=== PATIENT | female | born 1985 | race Caucasian/White ===

== ENCOUNTER 2016-12-24 18:34 | Emergency (ER) | payer OTHER ==
[2016-12-24 19:03] VITALS: RESP 18
[2016-12-24] MEDS ORDERED: methylPREDNISolone SOD SUCCI 125 MG/2 ML VIAL IM ONE (19:52)
[2016-12-24] MEDS ORDERED: IPRATROPIUM-ALBUTEROL 3 ML NEB INHALATION STA (19:52)
--- NOTE | 2016-12-24 19:58 | ED ---
General Adult HPI - General Chief complaint: Upper Respiratory Infection Stated complaint: Diff Breathing, cough Time Seen by Provider: 12/24/16 19:47 Source: patient Mode of arrival: ambulatory Limitations: no limitations - History of Present Illness Initial comments: 31-year-old female patient presented to emergency department today for complaints of cough and chest congestion. Patient states that for the last 5-6 days she has had a harsh cough, with frequent spasmodic coughing episodes. She states that symptoms started with sore throat and headache 6 days ago. She denies any history of nasal congestion or drainage with this. She states that occasionally she does cough up green sputum however it is mostly a dry cough. States she has had some wheezing, burning in her chest with the cough, and feels short of breath. She does have a past medical history significant for asthma. States she has been doing albuterol nebulizer updraft treatments every 4 hours without relief of symptoms. She denies use of [id number] cough or cold medications. She denies any known fever. Patient denies any chills, chest pain, abdominal pain, nausea, vomiting, diarrhea, constipation, back pain , numbness, tingling, dizziness, weakness, hematuria, dysuria, urinary urgency, urinary frequency, headache, visual changes, or any other complaints. She admits to smoking cigarettes. She states she has a paraguard IUD and takes control pills. She denies any chance of . - Related Data Home Medications Medication Instructions Recorded Confirmed ALPRAZolam [Xanax] 1 mg PO TID 03/17/15 12/24/16 lamoTRIgine [LaMICtal Xr] 200 mg PO DAILY 10/24/16 12/24/16 Gabapentin [Neurontin] 300 mg PO TID 12/24/16 12/24/16 Lo Loestrin 1 tab PO DAILY 12/24/16 12/24/16 Multivitamins, Thera [Multivitamin 1 tab PO DAILY 12/24/16 12/24/16 (formulary)] [place]-3 Fatty Acids/Fish Oil [Fish 1 cap PO DAILY 12/24/16 12/24/16 Oil 1,000 mg Softgel] Sertraline [Zoloft] 75 mg PO DAILY 12/24/16 12/24/16 Venlafaxine HCl [Effexor] 50 mg PO DAILY 12/24/16 12/24/16 Previous Rx's Medication Instructions Recorded Ipratropium-Albuterol Nebulize 3 ml INHALATION Q4H PRN #30 neb 12/24/16 [Duoneb 0.5 mg-3 mg/3 ml Soln] guaiFENesin [Mucinex] 600 mg PO BID PRN #10 tab.er.12h 12/24/16 predniSONE 50 mg PO DAILY #7 tab 12/24/16 Allergies Allergy/AdvReac Type Severity Reaction Status Date / Time No Known Allergies Allergy Verified 12/24/16 19:35 Review of Systems ROS Statement: Those systems with pertinent positive or pertinent negative responses have been documented in the HPI. ROS Other: All systems not noted in ROS Statement are negative. Past Medical History Additional Past Medical History / Comment(s): OCD, MDD, borderline personality disorder History of Any Multi-Drug Resistant Organisms: None Reported Past Surgical History: Ear Surgery Additional Past Surgical History / Comment(s): CLEFT PALETE REPAIR Past Psychological History: Anxiety, Bipolar Smoking Status: Current every day smoker Past Alcohol Use History: None Reported, Occasional Past Drug Use History: None Reported General Exam Limitations: no limitations General appearance: alert, in no apparent distress Eye exam: Present: normal appearance, PERRL, EOMI. Absent: scleral icterus, conjunctival injection, periorbital swelling ENT exam: Present: normal exam, normal oropharynx, mucous membranes moist, TM's normal bilaterally Neck exam: Present: normal inspection. Absent: tenderness, meningismus, lymphadenopathy Respiratory exam: Present: normal lung sounds bilaterally, wheezes (Left upper lobe posteriorly.). Absent: respiratory distress, rales, rhonchi, stridor Cardiovascular Exam: Present: regular rate, normal rhythm, normal heart sounds. Absent: systolic murmur, diastolic murmur, rubs, gallop, clicks GI/Abdominal exam: Present: soft, normal bowel sounds. Absent: distended, tenderness, guarding, rebound, rigid Neurological exam: Present: alert, oriented X3, CN II-XII intact Psychiatric exam: Present: normal affect, normal mood Skin exam: Present: warm, dry, intact, normal color. Absent: rash Course Vital Signs 12/24/16 12/24/16 12/24/16 19:00 20:11 20:19 Temperature 98.3 F Pulse Rate 99 104 H 106 H Respiratory 18 Rate Blood Pressure 129/74 O2 Sat by Pulse 93 L Oximetry 12/24/16 20:39 Temperature Pulse Rate 105 H Respiratory 18 Rate Blood Pressure 117/64 O2 Sat by Pulse 94 L Oximetry Medical Decision Making - Medical Decision Making 31-year-old female presented for evaluation of shortness of breath and cough 5- 6 days. Chest x-ray was performed and showed no acute cardiopulmonary process. Patient was given a DuoNeb treatment here in the department as well as a intramuscular injection of 125 mg IM Medrol. Patient states that she is feeling a little better. Did discuss with patient the importance of smoking cessation especially in regards to respiratory issues. Patient does have a history of asthma. She will be discharged home with a 7 day course of prednisone. She will be given prescription for DuoNeb treatments as she does have a nebulizer at home. She is instructed to do these treatments every 4-6 hours as needed. She is instructed to complete the entire prednisone prescription and full. She is instructed to follow-up with her primary care provider in one to 2 days for recheck. She is instructed to return here immediately for any new, worsening, or concerning symptoms. Patient verbalizes understanding and agrees with this plan. Disposition Clinical Impression: Acute bronchitis, Asthma exacerbation Disposition: HOME SELF-CARE Condition: Good Instructions: Asthma (ED), How to Stop Smoking (ED), Acute Bronchitis (ED) Additional Instructions: Two breathing treatments every 4-6 hours as needed. Complete steroid prescription and full. Increase fluids. Follow-up with her primary care physician for recheck in 1-2 days. Return here immediately for any new, worsening, or concerning symptoms. Prescriptions: guaiFENesin [Mucinex] 600 mg PO BID PRN #10 tab.er.12h PRN Reason: Cough/Congestion Ipratropium-Albuterol Nebulize [Duoneb 0.5 mg-3 mg/3 ml Soln] 3 ml INHALATION Q4H PRN #30 neb PRN Reason: Wheezing/Shortness of Breath predniSONE 50 mg PO DAILY #7 tab Referrals: Sina Russo MD [Primary Care Provider] - 1-2 days Time of Disposition: 21:33
--- NOTE | 2016-12-24 20:36 | XR ---
EXAMINATION TYPE: XR chest 2V DATE OF EXAM: 12/24/2016 COMPARISON: NONE HISTORY: Cough and short of breath TECHNIQUE: Frontal and lateral views of the chest are obtained. FINDINGS: Heart and mediastinum are normal. Lungs are clear. Diaphragm is normal. Bony thorax is int act. IMPRESSION: Normal chest.
[2016-12-24 21:45] VITALS: BP 111/74; PULSE 94; TEMP 99
== END 2016-12-24 21:45 | disposition home or self-care (01) ==
LOC: EC 18:34
DX: J20.9 Acute bronchitis, unspecified (principal); J45.901 Unspecified asthma with (acute) exacerbation; F41.9 Anxiety disorder, unspecified; F31.9 Bipolar disorder, unspecified; F17.200 Nicotine dependence, unspecified, uncomplicated; Z79.899 Other long term (current) drug therapy
CPT/HCPCS: 94640; 71020; 99283; 96372; J2930

== ENCOUNTER 2017-06-03 12:55 | Emergency (ER) | payer OTHER ==
[2017-06-03] MEDS ORDERED: diphenhydrAMINE 50 MG/ML 1 ML VIAL IVP STA (13:18)
[2017-06-03] MEDS ORDERED: METOCLOPRAMIDE 5 MG/ML 2 ML VIAL IVP STA (13:18)
[2017-06-03] MEDS ORDERED: SODIUM CHLORIDE 0.9% 1,000 ML IV STA (13:18)
--- NOTE | 2017-06-03 13:35 | ED ---
General Adult HPI - General Chief complaint: Headache Stated complaint: Migraine x's 3 days Time Seen by Provider: 06/03/17 13:12 Source: patient, RN notes reviewed Mode of arrival: ambulatory Limitations: no limitations - History of Present Illness Initial comments: 31-year-old female presents to the emergency department with a chief complaint of headache. Patient has a history of migraines. She states that she developed this migraine of the last 3 days. She is tried at home treatments with no improvement. She admits to sensitivity to light. Patient states her whole head is throbbing. She's not had a migraine many years. She states there is no falls traumas or injuries. Patient was concerned due to the continued headache so she thought that she should be seen.Patient denies any recent fever, chills, shortness of breath, chest pain, back pain, abdominal pain , nausea vomiting, numbness or tingling, dysuria or hematuria, constipation or diarrhea, visual changes, or any other current symptoms. - Related Data Home Medications Medication Instructions Recorded Confirmed ALPRAZolam [Xanax] 1 mg PO TID 03/17/15 06/03/17 Multivitamins, Thera [Multivitamin 1 tab PO DAILY 12/24/16 06/03/17 (formulary)] [place]-3 Fatty Acids/Fish Oil [Fish 1 cap PO DAILY 12/24/16 06/03/17 Oil 1,000 mg Softgel] Beclomethasone Dipropionate [Qvar 2 puff INHALATION RT-BID 06/03/17 06/03/17 80 mcg] Cholecalciferol [Vitamin D3] 1,000 unit PO DAILY 06/03/17 06/03/17 Montelukast [Singulair] 10 mg PO DAILY 06/03/17 06/03/17 Norethindrone-E.estradiol-Iron 1 tab PO DAILY 06/03/17 06/03/17 [Loestrin Fe 1-20 Tablet] Venlafaxine HCl [Effexor XR] 225 mg PO DAILY 06/03/17 06/03/17 lamoTRIgine [LaMICtal] 200 mg PO DAILY 06/03/17 06/03/17 Allergies Allergy/AdvReac Type Severity Reaction Status Date / Time No Known Allergies Allergy Verified 06/03/17 13:23 Review of Systems ROS Statement: Those systems with pertinent positive or pertinent negative responses have been documented in the HPI. ROS Other: All systems not noted in ROS Statement are negative. Past Medical History Additional Past Medical History / Comment(s): OCD, MDD, borderline personality disorder, migraines History of Any Multi-Drug Resistant Organisms: None Reported Past Surgical History: Ear Surgery Additional Past Surgical History / Comment(s): CLEFT PALETE REPAIR Past Psychological History: Anxiety, Bipolar Smoking Status: Current every day smoker Past Alcohol Use History: None Reported, Occasional Past Drug Use History: None Reported General Exam - General Exam Comments Initial Comments: General: The patient is awake and alert, in no distress, and does not appear acutely ill. Eye: Pupils are equal, round and reactive to light, extra-ocular movements are intact; there is normal conjunctiva bilaterally. No signs of icterus. Ears, nose, mouth and throat: There are moist mucous membranes. Neck: The neck is supple, there is no tenderness. Cardiovascular: There is a regular rate and rhythm. No murmur, rub or gallop is appreciated. Respiratory: Lungs are clear to auscultation, respirations are non-labored, breath sounds are equal. No wheezes, stridor, rales, or rhonchi. Gastrointestinal: Soft, non-distended, non-tender abdomen without masses or organomegaly noted. There is no rebound or guarding present. No CVA tenderness. Bowel sounds are unremarkable. Back: There is no tenderness to palpation in the midline. There is no obvious deformity. No rashes noted. Musculoskeletal: Normal ROM, no tenderness, There is no pedal edema. There is no calf tenderness or swelling. Sensation intact. Pulses equal bilaterally 2+. Neurological: CN II-XII intact, There are no obvious motor or sensory deficits. Coordination appears grossly intact. Speech is normal. Skin: Skin is warm and dry and no rashes or lesions are noted. Psychiatric: Cooperative, appropriate mood & affect, normal judgment. Limitations: no limitations Course Vital Signs 06/03/17 13:02 Temperature 98 F Pulse Rate 105 H Respiratory 22 Rate Blood Pressure 122/75 O2 Sat by Pulse 99 Oximetry Medical Decision Making - Medical Decision Making 31-year-old female presents emergency Department chief complaint of headache. At this time patient's headache has improved. At this time the CAT scan results were discussed patient. This time patient will be discharged home. We discussed follow-up return parameters all questions. Patient stated that she understood and she is here this plan. All questions have been answered. She will be discharged. Disposition Clinical Impression: Headache Disposition: HOME SELF-CARE Condition: Stable Instructions: Acute Headache (ED) Additional Instructions: Please use medication as discussed. Please follow up with family doctor if symptoms have not improved over the next two days. Please return to the emergency room if your symptoms increase or worsen or for any other concerns. Referrals: Sina Russo MD [Primary Care Provider] - 1-2 days Time of Disposition: 14:26
--- NOTE | 2017-06-03 13:54 | CT ---
EXAMINATION TYPE: CT brain wo con DATE OF EXAM: 06/03/2017 COMPARISON: NONE HISTORY: Patient complains of migraine headache and light sensitivity x3 days. CT DLP: [address] of the brain was performed. The ventricles, basal cisterns and sulci overlying the cerebral convexities demonstrate a normal appe arance. Incidental septum cavum pellucidum and vergae. There is no evidence for intracranial hemorrhage or sulcal effacement. No mass effects are seen. Osseous calvarium is intact. If symptoms persist consider MRI as clinically warranted. IMPRESSION: 1. No acute intracranial process is seen at this time.
[2017-06-03] MEDS ORDERED: KETOROLAC 30 MG/ML 1 ML VIAL IVP STA (13:59)
[2017-06-03 14:48] VITALS: BP 111/59; PULSE 80; RESP 18; TEMP 98.6
== END 2017-06-03 14:45 | disposition home or self-care (01) ==
LOC: EC 12:55
DX: R51 Headache (principal); H53.149 Visual discomfort, unspecified; F31.9 Bipolar disorder, unspecified; F41.9 Anxiety disorder, unspecified; F17.200 Nicotine dependence, unspecified, uncomplicated; Z79.3 Long term (current) use of hormonal contraceptives; Z79.51 Long term (current) use of inhaled steroids; Z79.899 Other long term (current) drug therapy
CPT/HCPCS: 70450; 99283; 96374; 96375 ×2; 96361; J1200; J2765; J1885

== ENCOUNTER 2018-04-07 06:55 | Day surgery (SDC) | payer OTHER ==
[2018-03-31 12:00] VITALS: BMI 26.9
[~2018-04-07 06:55] MED LIST: LACTATED RINGERS 1,000 ML IV SCH; LIDOCAINE 1% 20 ML VIAL (10MG/ML) FOR IV START INTRADERMA PRN; MIDAZOLAM (PF) 2 MG/2 ML VIAL IV PRN
[2018-04-07 07:23] VITALS: TEMP 97.3
[2018-04-07] MEDS ORDERED: PROPOFOL 10 MG/ML 20 ML VIAL IV ONE (07:55)
[2018-04-07 08:40] VITALS: RESP 18
--- NOTE | 2018-04-07 08:45 | P.PCN ---
Date of Procedure: 04/07/18 Procedure(s) Performed: Procedures: 1. Esophagogastroduodenoscopy and biopsy. 2. Colonoscopy and biopsy. Preoperative diagnosis: Chest pain, diarrhea and rectal bleeding. Postoperative diagnosis: 1. Small sliding hiatal hernia with no obvious esophagitis or complicated reflux disease. 2. Mild antral gastritis. 3. Internal hemorrhoids without bleeding at the time of this exam, otherwise, exam of the colon within normal limits. 4. Biopsies obtained from the duodenum, antrum, esophagus, right colon and a blind biopsy was obtained from the terminal ileum. Preparation: HalfLytely prep. Sedation: Was provided by anesthesia. Brief clinical history: The patient is a 32-year-old female who has been having diarrhea for the last year. Her diarrhea is daily with no dietary triggers or precipitating factors. Has intermittent rectal bleeding as well. She has been also having chest pains starting this summer and is on treatment for costochondritis. This evaluation is to assess for complicated reflux disease, inflammatory bowel disease or other pathology. Procedure: With the patient on her left lateral decubitus position and after informed consent and adequate sedation, I passed the Olympus-GIF 160 video upper endoscope through the cricopharyngeus down the esophagus. GE junction was around 35-36 cm from the incisors and there was a small sliding hiatal hernia but no obvious esophagitis or complicated reflux disease. The endoscope was then passed into the stomach which was insufflated with air and inspected in detail including the retroflex view in the cardia. There was some mottling and erythema in the antrum but no ulcers or erosions. Pyloric channel, duodenal bulb, post bulbar area and descending duodenum appeared within normal limits. Because of her symptoms, I obtained biopsies from the duodenum, antrum and esophagus then the endoscope was withdrawn and I proceeded with the colonoscopy. Perianal area did not show any fissures or fistulas. There were no masses felt on digital rectal examination. The Olympus CFH 190L video colonoscope was then inserted in the rectum in the usual fashion and advanced to the cecum. I was not able to intubate the ileocecal valve, however, I was able to obtain a blind biopsies from the terminal ileum. The colon appeared normal with no edema, erythema, friability, ulceration, exudation or spontaneous bleeding. I obtained biopsies from the right colon as well. I then retroflexed the endoscope in the rectum before the endoscope was withdrawn. Low-grade internal hemorrhoids were noted with no evidence of bleeding. The patient tolerated the procedure well. Plan: The patient was reassured. Will await biopsy results and make further plans based on her course and biopsy results. She will follow-up with you as planned and I will keep you updated on her progress.
[2018-04-07 08:52] VITALS: BP 102/71; PULSE 87
== END 2018-04-07 09:32 | disposition home or self-care (01) ==
LOC: ORWHC2ENDO 06:55
DX: K29.50 Unspecified chronic gastritis without bleeding (principal); K52.9 Noninfective gastroenteritis and colitis, unspecified; K62.89 Other specified diseases of anus and rectum; K44.9 Diaphragmatic hernia without obstruction or gangrene; K64.8 Other hemorrhoids; M94.0 Chondrocostal junction syndrome [Tietze]; J45.909 Unspecified asthma, uncomplicated; F17.210 Nicotine dependence, cigarettes, uncomplicated; K21.9 Gastro-esophageal reflux disease without esophagitis; Z79.899 Other long term (current) drug therapy
CPT/HCPCS: 81025; 88305; 45380; 43239; J2704

== ENCOUNTER → 2018-09-22 | Outpatient (CLI) | payer OTHER ==
--- NOTE | 2018-09-23 07:45 | US ---
EXAMINATION TYPE: US transvaginal DATE OF EXAM: 09/22/2018 COMPARISON: US CLINICAL HISTORY: Z30.431 encounter for routine checking of intrauterine. Pt states pelvic pain, more on right side TECHNIQUE: Transvaginal (TV). Transvaginal sonographic images of the pelvis were acquired. Date of LMP: 09/20/2018 EXAM MEASUREMENTS: Uterus: 8.5 x 4.4 x 5.6 cm Endometrial Stripe: 0.5 cm Right Ovary: 3.1 x 2.6 x 1.5 cm Left Ovary: 3.0 x 3.1 x 1.5 cm 1. Uterus: Anteverted Nabothian cysts in cervix, IUD in correct position 2. Endometrium: wnl 3. Right Ovary: wnl 4. Left Ovary: wnl 5. Bilateral Adnexa: Slightly prominent vasculature visualized bilateral adnexa 6. Posterior cul-de-sac: wnl IMPRESSION: 1. Intrauterine device appears appropriately placed within the central endometrium bridging the lower and upper uterine segments. 2. Slightly prominent vasculature is seen in the adnexa bilaterally that can be seen in pelvic conges tion syndrome.
== END | disposition home or self-care (01) ==
LOC: RADUSWWP 16:32
PROVIDERS: ATTEND Obstetrics & Gynecology
DX: Z30.431 Encounter for routine checking of intrauterine contraceptive device (principal)
CPT/HCPCS: 76830

== ENCOUNTER 2018-09-25 23:29 | Emergency (ER) | payer OTHER ==
[2018-09-26 00:11] VITALS: RESP 18
--- NOTE | 2018-09-26 00:45 | CT ---
EXAM: CT Angiography Neck With Intravenous Contrast CLINICAL HISTORY: ITS.REASON CT Reason: Neck injury TECHNIQUE: Axial computed tomographic angiography images of the neck with intravenous contrast using CT angiography protocol. CTDI is 9 mGy and DLP is 335 mGy-cm. This CT exam was performed using one or more of the following dose reduction techniques: automated exposure control, adjustment of the mA and/or kV according to patient size, and/or use of iterative reconstruction technique. MIP reconstructed images were created and reviewed. COMPARISON: No relevant prior studies available. FINDINGS: VASCULATURE: Right common carotid artery: Unremarkable. No significant stenosis. No dissection or occlusion. Right internal carotid artery: Unremarkable. Extracranial segment is patent with no significant stenosis. No dissection or occlusion. Right external carotid artery: Unremarkable. No occlusion. Right vertebral artery: Unremarkable. No significant stenosis. No dissection or occlusion. Left common carotid artery: Unremarkable. No significant stenosis. No dissection or occlusion. Left internal carotid artery: Unremarkable. Extracranial segment is patent with no significant stenosis. No dissection or occlusion. Left external carotid artery: Unremarkable. No occlusion. Left vertebral artery: Unremarkable. No significant stenosis. No dissection or occlusion. NECK: Bones/joints: No acute fracture. No dislocation. Soft tissues: Unremarkable. No mass. CAROTID STENOSIS REFERENCE USING NASCET CRITERIA: % ICA stenosis = (1 - narrowest ICA diameter/diameter of distal cervical ICA) x 100. Mild - <50% stenosis. Moderate - 50-69% stenosis. Severe - 70-94% stenosis. Near occlusion - 95-99% stenosis. Occluded - 100% stenosis. IMPRESSION: No significant stenosis.
[2018-09-26] MEDS ORDERED: ACET/COD 300 MG/30 MG STARTER PACK 6 TAB BTL PO STA (00:53)
--- NOTE | 2018-09-26 00:55 | ED ---
Neck Injury/Pain HPI - General Mode of arrival: ambulatory Limitations: no limitations <Noemi Munoz - Last Filed: 09/26/18 03:49> <Dalia Chauhan - Last Filed: 09/26/18 03:59> - General Chief Complaint: Neck Pain/Injury Stated Complaint: Neck pain Time Seen by Provider: 09/25/18 23:53 - History of Present Illness Initial Comments: 33-year-old female patient presents to the emergency department today for evaluation of anterior neck pain, sore throat, difficulty swallowing after an injury sustained on Wednesday. She states she was running through her friend's yard, not paying attention when she struck her neck on a metal line hanging up in the yard. States that she fell backwards and struck her head on the ground. Patient states she developed bruising over the anterior neck and has had sore throat since the injury. States that she initially had headache, but this did improve. She denies loss of consciousness with the injury. She denies any shortness of breath. Patient denies any headache, back pain, chest pain, shortness of breath, dizziness, weakness, abdominal pain, nausea, vomiting, or difficulties with bowel movements or urination. (Noemi Munoz) - Related Data Home Medications Medication Instructions Recorded Confirmed Multivitamins, Thera [Multivitamin 1 tab PO DAILY 12/24/16 04/07/18 (formulary)] [place]-3 Fatty Acids/Fish Oil [Fish 1 cap PO DAILY 12/24/16 04/07/18 Oil 1,000 mg Softgel] Beclomethasone Dipropionate [Qvar 2 puff INHALATION RT-BID 06/03/17 03/31/18 80 mcg] Cholecalciferol [Vitamin D3] 1,000 unit PO DAILY 06/03/17 04/07/18 Montelukast [Singulair] 10 mg PO DAILY 06/03/17 04/07/18 Venlafaxine HCl [Effexor XR] 225 mg PO DAILY 06/03/17 04/07/18 Modafinil [Provigil] 200 mg PO DAILY 03/31/18 04/07/18 Potassium Chloride [Klor-Con 10] 10 meq PO 1800 03/31/18 04/07/18 Topiramate [Topamax] 100 mg PO BID 03/31/18 03/31/18 Allergies Allergy/AdvReac Type Severity Reaction Status Date / Time lamotrigine [From Lamictal] Allergy Rash/Hives Verified 09/25/18 23:47 Review of Systems ROS Other: All systems not noted in ROS Statement are negative. <Noemi Munoz M - Last Filed: 09/26/18 03:49> ROS Other: All systems not noted in ROS Statement are negative. <Dalia Chauhan - Last Filed: 09/26/18 03:59> ROS Statement: Those systems with pertinent positive or pertinent negative responses have been documented in the HPI. Past Medical History Past Medical History: Asthma, GERD/Reflux, Osteoarthritis (OA) Additional Past Medical History / Comment(s): OCD,borderline personality disorder, migraines, BLOOD IN STOOL History of Any Multi-Drug Resistant Organisms: None Reported Past Surgical History: Ear Surgery Additional Past Surgical History / Comment(s): CLEFT PALATE REPAIR, Past Anesthesia/Blood Transfusion Reactions: No Reported Reaction Past Psychological History: Anxiety, Bipolar Smoking Status: Current some day smoker Past Alcohol Use History: None Reported Past Drug Use History: None Reported - Past Family History Mother Family Medical History: Deep Vein Thrombosis (DVT) <Noemi Munoz - Last Filed: 09/26/18 03:49> General Exam Limitations: no limitations General appearance: alert, in no apparent distress, other (Physical well- developed, well-nourished adult female patient in no acute distress. Vital s igns upon presentation are temperature 98.4F, pulse 77, respirations 20, blood pressure 130/89, pulse ox 97% on room air.) Eye exam: Present: normal appearance, PERRL, EOMI. Absent: scleral icterus, conjunctival injection, periorbital swelling ENT exam: Present: normal exam, normal oropharynx, mucous membranes moist Neck exam: Present: tenderness (Anterior neck tenderness), full ROM, other (There is ecchymosis noted over the anterior neck, linear ecchymosis noted. No posterior cervical spine tenderness, bony step-off, or deformity noted.). Absent: normal inspection, meningismus, lymphadenopathy Respiratory exam: Present: normal lung sounds bilaterally. Absent: respiratory distress, wheezes, rales, rhonchi, stridor Cardiovascular Exam: Present: regular rate, normal rhythm, normal heart sounds. Absent: systolic murmur, diastolic murmur, rubs, gallop, clicks GI/Abdominal exam: Present: soft, normal bowel sounds. Absent: distended, tenderness, guarding, rebound, rigid Neurological exam: Present: alert, oriented X3, CN II-XII intact Psychiatric exam: Present: normal affect, normal mood Skin exam: Present: warm, dry, intact, normal color. Absent: rash <Noemi Munoz - Last Filed: 09/26/18 03:49> Course Vital Signs 09/25/18 09/26/18 09/26/18 23:41 00:10 01:16 Temperature 98.4 F 98 F Pulse Rate 77 89 74 Respiratory 20 18 18 Rate Blood Pressure 130/89 123/86 123/83 O2 Sat by Pulse 97 98 100 Oximetry Medical Decision Making - Radiology Data Radiology results: report reviewed, image reviewed <Noemi Munoz - Last Filed: 09/26/18 03:49> <Dalia Chauhan - Last Filed: 09/26/18 03:59> - Medical Decision Making 33-year-old female patient presents the emergency department today for evaluation of neck pain, sore throat, painful swallowing after an injury sustained on Wednesday. Physical examination did reveal ecchymosis to the anterior neck. No bony tenderness, step-off or deformity was noted. Patient is neuro logically intact with no focal deficits. CT angiography of the neck was obtained and showed no acute abnormalities. I did discuss findings and results with the patient. We did discuss diagnosis of cervical strain and contusions. She is instructed take ibuprofen for pain control. She is given Tylenol with codeine starter pack for severe pain. She is instructed to follow-up with her primary care physician for recheck in 1-2 days. Return parameters were discussed in detail. She verbalizes understanding and agrees with this plan. (Noemi Munoz) I was available for consultation in the emergency department. The history and physical exam were done by the midlevel provider. I was consulted for this patient's care. I reviewed the case with the midlevel provider and based on their presentation of the patient, I agree with the assessment, medical decision making and plan of care as documented. Chart was dictated using [employer] dictation software. Attempts were made to correct any dictation errors however some typographical errors may persist. (Dalia Chauhan) - Radiology Data CT angiography of the neck was obtained. Report was reviewed in its entirety. Impression by Dr. Rivera shows no significant stenosis. Bones and joints show no acute fracture dislocation. Soft tissues are unremarkable no mass. (Noemi Munoz) Disposition Is patient prescribed a controlled substance at d/c from ED?: No Time of Disposition: 00:55 <Noemi Munoz - Last Filed: 09/26/18 03:49> <Dalia Chauhan - Last Filed: 09/26/18 03:59> Clinical Impression: Neck contusion, Cervical strain Disposition: HOME SELF-CARE Condition: Good Instructions (If sedation given, give patient instructions): Cervical Strain (ED), Contusion in Adults (ED) Additional Instructions: Continue taking ibuprofen. Use Tylenol with codeine sparingly for severe pain. Continue cool, soothing foods. Follow up with your primary care physician for recheck as soon as possible. Return to the emergency department immediately for any new, worsening, or concerning symptoms. Referrals: Sina Russo MD [Primary Care Provider] - 1-2 days
[2018-09-26 01:18] VITALS: BP 123/83; PULSE 74; TEMP 98
== END 2018-09-26 01:31 | disposition home or self-care (01) ==
LOC: EC 23:29
DX: S16.1XXA Strain of muscle, fascia and tendon at neck level, initial encounter (principal); J45.909 Unspecified asthma, uncomplicated; F41.9 Anxiety disorder, unspecified; F31.9 Bipolar disorder, unspecified; F17.200 Nicotine dependence, unspecified, uncomplicated; Z79.899 Other long term (current) drug therapy
CPT/HCPCS: 70498; 99283; Q9967

== ENCOUNTER 2018-10-11 19:05 | Inpatient (IN) | payer MEDICAID, OTHER ==
[2018-10-11] MEDS ORDERED: DIPH,PERTUS(ACELL)TETVAC-LF 0.5 ML VIAL IM ONE (19:54)
--- NOTE | 2018-10-11 19:55 | ED ---
General Adult HPI - General Chief complaint: Psychiatric Symptoms Stated complaint: Mental health Time Seen by Provider: 10/11/18 19:30 Source: patient, RN notes reviewed, old records reviewed Mode of arrival: ambulatory Limitations: no limitations - History of Present Illness Initial comments: 33-year-old female patient with long psychiatric history presents to ED with suicidal ideations. Patient reports that she had her medications adjusted and has been crying nonstop having suicidal thoughts. Patient reports that she was looking online ways to commit suicide without significant suffering or pain. Patient also performed some self-harm and with a superficial 6 inch scratch to her left thigh approximate 4 days ago. Denies doing anything else to hurt herself or hurt any other people. Denies any other complaints at this time. Systemic: Pt denies fatigue, fever/chills, rash. Pt denies weakness, night sweats, weight loss. Neuro: Pt denies headache, visual disturbances, syncope or pre-syncope. HEENT: Pt denies ocular discharge or irritation, otalgia, rhinorrhea, pharyngitis or notable lymphadenopathy. Cardiopulmonary: Pt denies chest pain, SOB, heart palpitations, dyspnea on exertion. Abdominal/GI: Pt denies abdominal pain, n/v/d. : Pt denies dysuria, burning w/ urination, frequency/urgency. Denies new onset urinary or bowel incontinence. MSK: Pt denies myalgia, loss of strength or function in extremities. Neuro: Pt denies new onset weakness, paresthesias. - Related Data Home Medications Medication Instructions Recorded Confirmed Multivitamins, Thera [Multivitamin 1 tab PO DAILY 12/24/16 10/11/18 (formulary)] [place]-3 Fatty Acids/Fish Oil [Fish 1 cap PO DAILY 12/24/16 10/11/18 Oil 1,000 mg Softgel] Beclomethasone Dipropionate [Qvar 2 puff INHALATION RT-BID 06/03/17 10/11/18 80 mcg] Cholecalciferol [Vitamin D3] 1,000 unit PO DAILY 06/03/17 10/11/18 Montelukast [Singulair] 10 mg PO DAILY 06/03/17 10/11/18 Venlafaxine HCl [Effexor XR] 225 mg PO DAILY 06/03/17 10/11/18 Modafinil [Provigil] 200 mg PO DAILY 03/31/18 10/11/18 Potassium Chloride [Klor-Con 10] 10 meq PO DAILY@1800 03/31/18 10/11/18 Topiramate [Topamax] 100 mg PO BID 03/31/18 10/11/18 Gabapentin 800 mg PO QID 10/11/18 10/11/18 Allergies Allergy/AdvReac Type Severity Reaction Status Date / Time lamotrigine [From Lamictal] Allergy Rash/Hives Verified 10/11/18 19:53 Review of Systems ROS Statement: Those systems with pertinent positive or pertinent negative responses have been documented in the HPI. ROS Other: All systems not noted in ROS Statement are negative. Past Medical History Past Medical History: Asthma, GERD/Reflux, Osteoarthritis (OA) Additional Past Medical History / Comment(s): OCD,borderline personality disorder, migraines, BLOOD IN STOOL History of Any Multi-Drug Resistant Organisms: None Reported Past Surgical History: Ear Surgery Additional Past Surgical History / Comment(s): CLEFT PALATE REPAIR, Past Anesthesia/Blood Transfusion Reactions: No Reported Reaction Past Psychological History: Anxiety, Bipolar Smoking Status: Current every day smoker Past Alcohol Use History: None Reported Past Drug Use History: Marijuana - Past Family History Mother Family Medical History: Deep Vein Thrombosis (DVT) General Exam - General Exam Comments Initial Comments: Constitutional: NAD, AOX3, Pt has pleasant affect. HEENT: NC/AT, trachea midline, neck supple, no lymphadenopathy. Posterior pharynx non erythematous, without exudates. External ears appear normal, without discharge. Mucous membranes moist. Eyes PERRLA, EOM intact. There is no scleral icterus. No pallor noted. Cardiopulmonary: RRR, no murmurs, rubs or gallops, no JVD noted. Lungs CTAB in anterior and posterior diggs. No peripheral edema. Abdominal exam: Abdomen soft and non-distended. Abdomen non-tender to palpation in all 4 quadrants. Bowel sounds active in LLQ. No hepatosplenomegaly. No ecchymosis Neuro: CN II-XII grossly intact. No nuchal rigidity. No raccon eyes, no cormier sign, no hemotympanum. No cervical spinal tenderness. MSK: 6 inch superficial scratch to her left thigh, healing. No signs of infection. No posterior calf tenderness bilaterally, homans sign negative bilaterally. Posterior tibialis and radial pulse +2 bilaterally. Sensation intact in upper and lower extremities. Full active ROM in upper and lower extremities, 5/5 stregnth. Limitations: no limitations Course Vital Signs 10/11/18 19:22 Temperature 98.6 F Pulse Rate 95 Respiratory 18 Rate Blood Pressure 119/75 O2 Sat by Pulse 100 Oximetry Medical Decision Making - Medical Decision Making 33-year-old female patient with long psychiatric history presents to ED with suicidal ideations. Patient reports that she had her medications adjusted and has been crying nonstop having suicidal thoughts. Patient reports that she was looking online ways to commit suicide without significant suffering or pain. Patient also performed some self-harm and with a superficial 6 inch scratch to her left thigh approximate 4 days ago. Denies doing anything else to hurt herself or hurt any other people. Denies any other complaints at this time. Patient vital signs stable, afebrile. Physical exam displayed superficial scratch on left thigh. Patient administered Tdap. Patient seen by EPS and recommended admission. Patient admitted to this facility. - Lab Data Lab Results 10/11/18 Range/Units 19:54 Urine Opiates Screen Not Detected (NotDetected) Ur Oxycodone Screen Not Detected (NotDetected) Urine Methadone Screen Not Detected (NotDetected) Ur Propoxyphene Screen Not Detected (NotDetected) Ur Barbiturates Screen Not Detected (NotDetected) U Tricyclic Antidepress Not Detected (NotDetected) Ur Phencyclidine Scrn Detected H (NotDetected) Ur Amphetamines Screen Not Detected (NotDetected) U Methamphetamines Scrn Not Detected (NotDetected) U Benzodiazepines Scrn Not Detected (NotDetected) Urine Cocaine Screen Not Detected (NotDetected) U Marijuana (THC) Screen Detected H (NotDetected) Disposition Clinical Impression: Suicidal ideation Disposition: ADMITTED IP TO THIS [facility] Condition: Serious Is patient prescribed a controlled substance at d/c from ED?: No
[2018-10-11 20:20] LABS: Phencyclidine Screen,Urine Detected (NotDetected); Urn Cannabinoid Scrn Detected (NotDetected)
[2018-10-11 20:21] LABS: Amphetamine Screen,Urine Not Detected (NotDetected); Barbiturate Screen,Urine Not Detected (NotDetected); Benzodiazepines Screen,Urine Not Detected (NotDetected); Cocaine Screen,Urine Not Detected (NotDetected); Methadone Screen, Urine Not Detected (NotDetected); Opiate Screen,Urine Not Detected (NotDetected); Oxycodone Screen, Urine Not Detected (NotDetected); Tricyclic Antidepressant,Urine Not Detected (NotDetected)
[2018-10-11] MEDS ORDERED: MAG HYDROX/AL HYDROX/SIMETH 30 ML CUP PO PRN (22:33)
[2018-10-11] MEDS ORDERED: MAGNESIUM HYDROXIDE 2,400 MG/10 ML CUP PO PRN (22:33)
[2018-10-11] MEDS ORDERED: LORazepam 1 MG TAB PO PRN (22:33)
[2018-10-11] MEDS ORDERED: LORazepam 2 MG/ML INJ IM PRN (22:37)
[2018-10-11] MEDS: TOPIRAMATE 100 MG TAB PO SCH (22:57)
[2018-10-12] MEDS ORDERED: BUDESONIDE 1 MG/2 ML NEBU INHALATION SCH (08:00)
[2018-10-12] MEDS: MULTIVITAMINS, THERA 1 EACH TAB PO SCH (08:56)
[2018-10-12] MEDS: TOPIRAMATE 100 MG TAB PO SCH ×2 (08:58→21:40)
[2018-10-12] MEDS: CHOLECALCIFEROL 1,000 UNIT TAB PO SCH (08:59)
[2018-10-12] MEDS: MONTELUKAST 10 MG TAB PO SCH (08:59)
[2018-10-12] MEDS ORDERED: NON-FORMULARY DRUG (Omega-3 Fatty Acids/Fish Oil [Fish Oil 1,000 Mg Softgel] 1 CAP) PO SCH (09:00)
[2018-10-12] MEDS ORDERED: VENLAFAXINE HCL ER 75 MG CAP PO SCH (09:00)
[2018-10-12] MEDS: FLUTICASONE 110 MCG INHALER INHALATION SCH ×2 (10:55→21:39)
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
[2018-10-12 11:41] LABS: Basophils # (A) 0.1 k/uL (0-0.2); Basophils % (A) 1 %; Eosinophils # (A) 0.2 k/uL (0-0.7); Eosinophils % (A) 4 %; HCT 38.3 % (34.0-46.0); Lymphocytes # (A) 1.7 k/uL (1.0-4.8); Lymphocytes % (A) 29 %; MCH 30.4 pg (25.0-35.0); MCHC 31.5 g/dL (31.0-37.0); MCV 96.7 fL (80.0-100.0); Monocytes # (A) 0.4 k/uL (0-1.0); Monocytes % (A) 7 %; Neutrophils # (A) 3.5 k/uL (1.3-7.7); Neutrophils % (A) 58 %; Platelet Count 249 k/uL (150-450); RBC 3.96 m/uL (3.80-5.40); RDW 13.2 % (11.5-15.5)
[2018-10-12 12:03] LABS: ALT 19 U/L (9-52); AST 24 U/L (14-36); African American GFR (CKD) >90 (>60 ml/min/1.73 sqM); Albumin 4.1 g/dL (3.5-5.0); Alkaline Phosphatase 74 U/L (38-126); Anion Gap 7 mmol/L; Blood Urea Nitrogen 7 mg/dL (7-17); Calcium 9.3 mg/dL (8.4-10.2); Carbon Dioxide 24 mmol/L (22-30); Chloride 112 mmol/L (98-107); Cholesterol 178 mg/dL (<200); Glucose 97 mg/dL (74-99); HDL Cholesterol 52 mg/dL (40-60); LDL Cholesterol,Calculated 100 mg/dL (0-99); Potassium 4.1 mmol/L (3.5-5.1); Sodium 143 mmol/L (137-145); Total Bilirubin 0.2 mg/dL (0.2-1.3); Total Protein 6.5 g/dL (6.3-8.2); Triglycerides 128 mg/dL (<150)
[2018-10-12] MEDS: POTASSIUM CHLORIDE ER 10 MEQ TAB.ER.PRT PO SCH (16:47)
[2018-10-12] MEDS: GABAPENTIN 300 MG CAP PO SCH ×2 (16:47→21:40)
[2018-10-12 17:43] VITALS: BMI 23.6
[2018-10-12] MEDS ORDERED: MD COMMUNICATION TO PHARMACY 1 EACH MISC PO SCH (18:00)
[2018-10-12] MEDS: ENTOCORT 3 MG PO SCH (18:17)
[2018-10-12 19:44] LABS: Hemoglobin A1C 5.2 % (4.0-6.0)
[2018-10-12] MEDS: ACETAMINOPHEN TAB 325 MG TAB PO PRN (22:22)
--- NOTE | 2018-10-13 07:53 | P.CONS ---
History of Present Illness - Reason for Consult Consult date: 10/12/18 - Chief Complaint Suicidal ideation - History of Present Illness This is a consultation on a 33-year-old white female with known history of severe depressive symptomatology has been despondent for the last several days. She's been inconsolable and has been considering element of suicide. After evaluation in the emergency room, EPS has deemed her appropriate for inpatient treatment. Review of Systems Constitutional: Denies chills, Denies fever Eyes: denies blurred vision, denies pain Ears, nose, mouth and throat: Denies headache, Denies sore throat Cardiovascular: Denies chest pain, Denies shortness of breath Respiratory: Denies cough Genitourinary: Denies dysuria, Denies hematuria Musculoskeletal: Denies myalgias Past Medical History Past Medical History: Asthma, GERD/Reflux, Osteoarthritis (OA) Additional Past Medical History / Comment(s): OCD,borderline personality disorder, migraines, BLOOD IN STOOL History of Any Multi-Drug Resistant Organisms: None Reported Past Surgical History: Ear Surgery Additional Past Surgical History / Comment(s): CLEFT PALATE REPAIR, Past Anesthesia/Blood Transfusion Reactions: No Reported Reaction Past Psychological History: Anxiety, Bipolar Smoking Status: Current every day smoker Past Alcohol Use History: None Reported Past Drug Use History: Marijuana - Past Family History Mother Family Medical History: Deep Vein Thrombosis (DVT) Medications and Allergies Home Medications Medication Instructions Recorded Confirmed Type Multivitamins, Thera [Multivitamin 1 tab PO DAILY 12/24/16 10/11/18 History (formulary)] [place]-3 Fatty Acids/Fish Oil [Fish 1 cap PO DAILY 12/24/16 10/11/18 History Oil 1,000 mg Softgel] Beclomethasone Dipropionate [Qvar 2 puff INHALATION RT-BID 06/03/17 10/11/18 History 80 mcg] Cholecalciferol [Vitamin D3] 1,000 unit PO DAILY 06/03/17 10/11/18 History Montelukast [Singulair] 10 mg PO DAILY 06/03/17 10/11/18 History Venlafaxine HCl [Effexor XR] 225 mg PO DAILY 06/03/17 10/11/18 History Modafinil [Provigil] 200 mg PO DAILY 03/31/18 10/11/18 History Potassium Chloride [Klor-Con 10] 10 meq PO DAILY@1800 03/31/18 10/11/18 History Topiramate [Topamax] 100 mg PO BID 03/31/18 10/11/18 History Gabapentin 800 mg PO QID 10/11/18 10/11/18 History Allergies Allergy/AdvReac Type Severity Reaction Status Date / Time lamotrigine [From Lamictal] Allergy Rash/Hives Verified 10/11/18 19:53 Physical Exam Vitals: Vital Signs Temp Pulse Pulse Resp BP BP Pulse Ox 10/12/18 07:00 98.0 F 91 16 95/64 10/11/18 23:38 97.5 F L 74 16 106/69 10/11/18 19:22 98.6 F 95 18 119/75 100 Intake and Output 10/11/18 10/12/18 10/12/18 22:59 06:59 14:59 Other: Weight 63.049 kg - Constitutional General appearance: no acute distress - EENT Eyes: EOMI - Neck Neck: no lymphadenopathy - Respiratory Respiratory: bilateral: diminished - Cardiovascular Rhythm: regular Heart sounds: normal: S1, S2 Abnormal Heart Sounds: no S3 Gallop - Gastrointestinal General gastrointestinal: soft, no tenderness Results Labs: Abnormal Lab Results - Last 24 Hours (Table) 10/11/18 Range/Units 19:54 Ur Phencyclidine Scrn Detected H (NotDetected) U Marijuana (THC) Screen Detected H (NotDetected) Assessment and Plan (1) Suicidal ideation Current Visit: Yes Status: Acute Code(s): R45.851 - SUICIDAL IDEATIONS SNOMED Code(s): 8873703 (2) Cervical strain Current Visit: No Status: Acute Code(s): S16.1XXA - STRAIN OF MUSCLE, FASCIA AND TENDON AT NECK LEVEL, INIT SNOMED Code(s): 335256819 (3) Neck contusion Current Visit: No Status: Acute Code(s): S10.93XA - CONTUSION OF UNSPECIFIED PART OF NECK, INITIAL ENCOUNTER SNOMED Code(s): 6903261 Plan: Tylenol with NSAID treatment for neck pain if necessary. Otherwise, we'll continue to follow with psychiatry. Gnosis is guarded secondary to her multiple mental health history
[2018-10-13] MEDS: MULTIVITAMINS, THERA 1 EACH TAB PO SCH (09:35)
[2018-10-13] MEDS: CHOLECALCIFEROL 1,000 UNIT TAB PO SCH (09:35)
[2018-10-13] MEDS: MONTELUKAST 10 MG TAB PO SCH (09:35)
[2018-10-13] MEDS: GABAPENTIN 300 MG CAP PO SCH ×3 (09:35→21:38)
[2018-10-13] MEDS: ENTOCORT 3 MG PO SCH (09:36)
[2018-10-13] MEDS: TOPIRAMATE 100 MG TAB PO SCH ×2 (09:36→21:38)
[2018-10-13] MEDS: VENLAFAXINE HCL ER 75 MG CAP PO SCH (09:38)
--- NOTE | 2018-10-13 15:25 | P.PN ---
Progress Note - Text Progress Note Date: 10/13/18 Interval History: Patient is a 33-year-old female being [place] [facility] [place] she reports that she is feeling tired, attended 1 group and has spent the bulk of the day in bed she states that she attended 1 group today. Patient had no other complaints at this time. Mental Status: Appearance/Attitude: Patient is casually dressed, makes eye contact and is cooperative Behavior: Patient does not display any psychomotor agitation but is somewhat slowed difficult to state if this is because I just awakened her not. Speech/Language: Patient's speech is slightly slowed, normal volume and she is coherent Thought Process: Patient is goal-directed but with little elaboration no evidence of flight of ideas Thought Content: Patient denies any auditory or visual hallucinations no delusions or paranoid ideation are elicited. Patient only complaint today was that she feels tired, patient was in her bed sleeping when I awakened her to come to the interview room late in the afternoon. Patient states that she ate breakfast but can't recall if she ate lunch or not. Suicidal/Homicidal Ideation: Patient denies any current suicidal or homicidal ideation Sensorium/Cognition: Patient is alert and oriented to person, place and time further cognitive testing was not performed Mood/Affect: Patient's mood is limited and her affect is blunted Insight/Judgment: Patient's insight and judgment are fair Assessment: Patient had little to say other than that she was feeling tired, appears slightly psychomotor retarded this could because I just awakened her, patient attended 1 group today and has spent the bulk of the day in bed sleeping. Patient reported no other difficulties or complaints at this time. Plan: Patient will continue on the plan to taper her off of Effexor and Klonopin she's continued on her Neurontin and Topamax. Patient continues to require hospitalization to further stabilize her mood.
[2018-10-13] MEDS: ACETAMINOPHEN TAB 325 MG TAB PO PRN (16:34)
[2018-10-13] MEDS: POTASSIUM CHLORIDE ER 10 MEQ TAB.ER.PRT PO SCH (18:17)
[2018-10-13] MEDS: FLUTICASONE 110 MCG INHALER INHALATION SCH (21:39)
[2018-10-14] MEDS: FLUTICASONE 110 MCG INHALER INHALATION SCH ×3 (00:04→20:46)
[2018-10-14 07:08] VITALS: RESP 14
[2018-10-14] MEDS: GABAPENTIN 300 MG CAP PO SCH ×3 (09:14→20:49)
[2018-10-14] MEDS: CHOLECALCIFEROL 1,000 UNIT TAB PO SCH (09:15)
[2018-10-14] MEDS: ENTOCORT 3 MG PO SCH (09:15)
[2018-10-14] MEDS: MULTIVITAMINS, THERA 1 EACH TAB PO SCH (09:15)
[2018-10-14] MEDS: VENLAFAXINE HCL ER 75 MG CAP PO SCH (09:15)
[2018-10-14] MEDS: MONTELUKAST 10 MG TAB PO SCH (09:15)
[2018-10-14] MEDS: TOPIRAMATE 100 MG TAB PO SCH ×3 (09:15→20:49)
--- NOTE | 2018-10-14 09:46 | P.PN ---
Progress Note - Text Interval history: The patient is found in her room she follows me to an interview room. She states that she's been laying in bed sleeping most of the day. It appears she's been minimally participating in groups if any. She reports missing breakfast this morning. She describes feeling homesick and wants to be back with her daughter. We discussed that she presented with suicidal ideation and recent self injury. We discussed the importance of participating in groups as part of her treatment plan here in the mental health unit. Again we reviewed the plan of cross tapering off of Effexor and initiating Lexapro. She states that her Topamax dose was higher as an outpatient and she was also on Wellbutrin which I was unaware of. She was reassured that we can contact her pharmacy to verify her most recent medications. Mental status exam: The patient is alert she has a disheveled appearance hygiene is fair. She is tearful throughout the session she has a dysphoric affect. She describes feeling sad. She endorses some hopeless thoughts. In terms of suicidal ideation she feels safe in the hospital. No homicidal ideation intent or plan. She is endorsing no auditory or visual hallucinations or any specific delusions. She demonstrates no evidence of psychosis. She does not appear hypomanic or manic at this time. She has some spontaneous speech is soft and slow. She demonstrates no pressured speech. Thought process for the most part is linear she demonstrates no tangential thinking loose associations or flight of ideas. She demonstrates no verbal or physical aggressiveness she demonstrates no involuntary repetitive movements. Insight and judgment limited. Plan: Ongoing symptoms of depression, we will initiate Lexapro 5 mg tomorrow. We will plan on continuing to taper off of Effexor XR. We will verify whether or not she has been taking Wellbutrin recently and the most recent Topamax dose. We spent several minutes discussing the importance of attending groups as part of her evaluation and treatment. We will continue monitoring her for safety. She requires continued psychiatric hospitalization for further stabilization and safety reasons.
[2018-10-14] MEDS: POTASSIUM CHLORIDE ER 10 MEQ TAB.ER.PRT PO SCH (17:28)
[2018-10-15] MEDS: MULTIVITAMINS, THERA 1 EACH TAB PO SCH (07:31)
[2018-10-15] MEDS: VENLAFAXINE HCL ER 75 MG CAP PO SCH (07:31)
[2018-10-15] MEDS: CHOLECALCIFEROL 1,000 UNIT TAB PO SCH (07:31)
[2018-10-15] MEDS: buPROPion XL 300 MG TAB.ER.24H PO SCH (07:31)
[2018-10-15] MEDS: ENTOCORT 3 MG PO SCH (07:31)
[2018-10-15] MEDS: MONTELUKAST 10 MG TAB PO SCH (07:31)
[2018-10-15] MEDS: GABAPENTIN 300 MG CAP PO SCH ×3 (07:32→20:12)
[2018-10-15] MEDS: FLUTICASONE 110 MCG INHALER INHALATION SCH ×2 (07:32→20:12)
[2018-10-15] MEDS: TOPIRAMATE 100 MG TAB PO SCH ×3 (07:32→20:12)
[2018-10-15] MEDS ORDERED: ESCITALOPRAM 5 MG TAB PO SCH (09:00)
--- NOTE | 2018-10-15 10:32 | P.PN ---
Progress Note - Text Interval history: The patient's found in her room sleeping she follows me to an interview room. She states that her mood is improving. She states that she made an effort to attend most groups yesterday. Appetite is been stable. We reviewed the cross titration off of Effexor XR onto Lexapro. We will be reducing the Effexor XR further starting tomorrow an increase in the Lexapro. She has no questions or concerns at this time. She is scheduled to participate in a support meeting involving a family member today. Mental status exam: The patient is alert she is dressed in a hospital gown and her own clothes. Hygiene adequate she's mildly disheveled. Speech is fluent spontaneous nonpressured. She is pleasant cooperative and easily directable. She indicates her mood is better she reports feeling more hopeful. She states that she feels safe here in the hospital. She is reporting no homicidal ideation intent or plan. She is reporting no auditory or visual hallucinations or any specific delusions. She demonstrates no verbal or physical aggressiveness no involuntary repetitive movements. Insight and judgment are slowly improving. She is oriented to person place and date. She does not appear hypomanic or manic. Plan: The patient will continue on her medications however the Effexor XR will be reduced to 37.5 mg daily starting tomorrow for will be increased 10 mg daily. We will monitor for safety. She is encouraged to participate in all groups. We will await the outcome of her support meeting. Vital signs reviewed.
[2018-10-15] MEDS: ACETAMINOPHEN TAB 325 MG TAB PO PRN ×2 (13:44→22:12)
[2018-10-15] MEDS: POTASSIUM CHLORIDE ER 10 MEQ TAB.ER.PRT PO SCH (17:31)
[2018-10-16] MEDS: CHOLECALCIFEROL 1,000 UNIT TAB PO SCH (09:01)
[2018-10-16] MEDS: buPROPion XL 300 MG TAB.ER.24H PO SCH (09:01)
[2018-10-16] MEDS: VENLAFAXINE HCL ER 37.5 MG CAP PO SCH (09:01)
[2018-10-16] MEDS: MONTELUKAST 10 MG TAB PO SCH (09:01)
[2018-10-16] MEDS: GABAPENTIN 300 MG CAP PO SCH ×3 (09:01→21:42)
[2018-10-16] MEDS: TOPIRAMATE 100 MG TAB PO SCH ×3 (09:01→21:42)
[2018-10-16] MEDS: MULTIVITAMINS, THERA 1 EACH TAB PO SCH (09:02)
[2018-10-16] MEDS: ESCITALOPRAM 10 MG TAB PO SCH (09:02)
[2018-10-16] MEDS: FLUTICASONE 110 MCG INHALER INHALATION SCH ×2 (09:02→21:43)
[2018-10-16] MEDS: ENTOCORT 3 MG PO SCH (09:03)
--- NOTE | 2018-10-16 13:05 | P.PN ---
Progress Note - Text Interval history: The patient is found in group she follows me to an interview room. She reports that her mood has been good. She did have a family meeting involving her ex-'s mother yesterday morning and that went well. I did review the notes from social work. The patient plans to stay with her ex- for a short while upon discharge. The patient states that she has been making a greater effort in terms of attending groups. We reviewed her psychotropic medication changes her questions were answered. She indicates that she is eating and she slept well staff recorded she slept 6 hours. Mental status exam: The patient is alert she stressor own clothing hygiene grooming adequate. Speech is fluent spontaneous nonpressured. She reports her mood is improving she will experience some sadness from time to time. She is reporting no acute suicidal or homicidal ideation intent or plan. She states that she will still have those thoughts but does not feel that they are strong. She is reporting no auditory or visual hallucinations or any specific delusions. There is no observed evidence of psychosis. She does not appear hypomanic or manic at this time. She demonstrates no verbal or physical aggressiveness. Insight and judgment improving. Spontaneously reports future oriented thinking. Plan: The patient will continue on her current medications as we continue our cross titration. We will monitor for safety and encourage full participation in the milieu. Vital signs reviewed.
[2018-10-16] MEDS: ACETAMINOPHEN TAB 325 MG TAB PO PRN (13:58)
[2018-10-16] MEDS: POTASSIUM CHLORIDE ER 10 MEQ TAB.ER.PRT PO SCH (16:45)
[2018-10-17 06:22] VITALS: BP 100/55; PULSE 84; TEMP 98.2
[2018-10-17] MEDS: ESCITALOPRAM 10 MG TAB PO SCH (08:25)
[2018-10-17] MEDS: MULTIVITAMINS, THERA 1 EACH TAB PO SCH (08:25)
[2018-10-17] MEDS: TOPIRAMATE 100 MG TAB PO SCH (08:25)
[2018-10-17] MEDS: VENLAFAXINE HCL ER 37.5 MG CAP PO SCH (08:25)
[2018-10-17] MEDS: CHOLECALCIFEROL 1,000 UNIT TAB PO SCH (08:25)
[2018-10-17] MEDS: MONTELUKAST 10 MG TAB PO SCH (08:25)
[2018-10-17] MEDS: GABAPENTIN 300 MG CAP PO SCH (08:25)
[2018-10-17] MEDS: ENTOCORT 3 MG PO SCH (08:26)
[2018-10-17] MEDS: buPROPion XL 300 MG TAB.ER.24H PO SCH (08:26)
[2018-10-17] MEDS: FLUTICASONE 110 MCG INHALER INHALATION SCH (08:26)
--- NOTE | 2018-10-17 10:14 | P.DS ---
Providers Date of admission: 10/11/18 21:55 Expected date of discharge: 10/17/18 Attending physician: Jamaal Baez Consults: 10/11/18 22:33 Consult Physician Routine Consulting Provider: Sina Russo Consult Reason/Comments: H&P and medical Do you want consulting provider notified?: Yes Primary care physician: Sina Russo - Discharge Diagnosis(es) (1) Major depressive disorder, recurrent severe without psychotic features Current Visit: Yes Status: Acute Priority: High (2) Anxiety disorder, unspecified Current Visit: Yes Status: Acute Priority: Medium (3) Cannabis use disorder, mild, abuse Current Visit: Yes Status: Acute Priority: Medium Hospital Course: Brief summary of admission note: This patient is a 33-year-old female who was admitted to the mental health unit through the emergency room for suicidal ideation. She presented saying she's been tearful on a regular basis appetite is been fluctuating sleep has been excessive and energy is low. She had suicidal thoughts with a plan of overdosing or walking in front of a semitruck. 2 days prior to this admission she states that she cut her left anterior thigh superficially with a knife. Her outpatient psychiatrist had recently tried to cross taper her off of Effexor XR and on the Luvox but she felt she had an adverse reaction. She contacted her psychiatrist and she was instructed to come to the hospital. For full details please refer to my psychiatric evaluation dated 10/12/2018. Summary of hospital course: The patient was admitted to the mental health unit voluntarily. We reviewed her psychotropic medications and treatment options. We decided that the Effexor indeed needed to be tapered off. We chose Lexapro as an alternative. She was continued on Neurontin at a lower dose, Topamax, and her Wellbutrin was restarted. The patient was seen by internal medicine for routine history and physical exam. Social work met with the patient to complete a psychosocial assessment for discharge planning purposes. The patient has participated in a support meeting this past weekend with her former paovru-in-qpz. That meeting was supportive and went well. The patient plans on staying with her ex- temporarily upon discharge. Initially the patient was very tired she did not participate in groups but as the hospitalization progressed she became more interactive. Over this past weekend she attended almost all groups she was bright and social with her peers. She states that her suicidal thoughts have resolved. She is content with her current medication plan. She is experiencing no side effects from the cross titration off of Effexor XR onto Lexapro. Mental status exam: The patient is alert she is dressed in her own clothing hygiene grooming are good. Speech is fluent spontaneous nonpressured. She reports mood is good. Affect is euthymic and appropriately expresses. She denies having any suicidal or homicidal ideation intent or plan. She reports she does not feel hopeless. She is endorsing no other self-injurious thoughts such as cutting. She reports no auditory or visual hallucinations or any specific delusions. She demonstrates no observed evidence of psychosis. Thought process is linear she demonstrates no tangential thinking loose as sociations or flight of ideas. She does not appear hypomanic or manic. Insight and judgment grossly intact. She is oriented to person place and date. She demonstrates no verbal or physical aggressiveness. She spontaneously describes future oriented thinking. Impressions 1. Major depressive disorder recurrent severe without psychosis, anxiety unspecified, rule out PTSD, cannabis use disorder mild 2. Borderline personality disorder traits Plan: The patient will be discharged mental health unit today. She will continue on Lexapro 10 mg daily, Topamax 100 mg 3 times daily, Neurontin 300 mg 3 times daily, Wellbutrin XL 300 mg in the morning. We discontinued the Provigil and the Klonopin. We recommend that she stay off of benzodiazepines. She is instructed to abstain from any use of alcohol marijuana or any illicit drugs. She feels is no need to attend inpatient chemical dependency treatment. Social work will arrange for outpatient mental health follow-up. At this time there is no imminent safety risk the patient is appropriate for transition outpatient care. She is instructed to return to the hospital with any acute safety concerns. Patient Condition at Discharge: Stable Plan - Discharge Summary Discharge Rx Participant: Yes New Discharge Prescriptions: New Escitalopram [Lexapro] 10 mg PO DAILY #30 tab Gabapentin [Neurontin] 300 mg PO TID #45 cap Topiramate [Topamax] 100 mg PO TID #45 tab buPROPion XL [Wellbutrin XL] 300 mg PO DAILY #30 tab.er.24h Continue Multivitamins, Thera [Multivitamin (formulary)] 1 tab PO DAILY [place]-3 Fatty Acids/Fish Oil [Fish Oil 1,000 mg Softgel] 1 cap PO DAILY Cholecalciferol [Vitamin D3 (25 Mcg = 1000 Iu)] 1,000 unit PO DAILY Montelukast [Singulair] 10 mg PO DAILY Beclomethasone Dipropionate [Qvar 80 mcg] 2 puff INHALATION RT-BID Potassium Chloride [Klor-Con 10] 10 meq PO DAILY@1800 Discontinued Venlafaxine HCl [Effexor XR] 225 mg PO DAILY Modafinil [Provigil] 200 mg PO DAILY Topiramate [Topamax] 100 mg PO BID Gabapentin 800 mg PO QID Discharge Medication List Multivitamins, Thera [Multivitamin (formulary)] 1 tab PO DAILY 12/24/16 [History] [place]-3 Fatty Acids/Fish Oil [Fish Oil 1,000 mg Softgel] 1 cap PO DAILY 12/24/16 [History] Beclomethasone Dipropionate [Qvar 80 mcg] 2 puff INHALATION RT-BID 06/03/17 [History] Cholecalciferol [Vitamin D3 (25 Mcg = 1000 Iu)] 1,000 unit PO DAILY 06/03/17 [History] Montelukast [Singulair] 10 mg PO DAILY 06/03/17 [History] Potassium Chloride [Klor-Con 10] 10 meq PO DAILY@1800 03/31/18 [History] Escitalopram [Lexapro] 10 mg PO DAILY #30 tab 10/17/18 [Rx] Gabapentin [Neurontin] 300 mg PO TID #45 cap 10/17/18 [Rx] Topiramate [Topamax] 100 mg PO TID #45 tab 10/17/18 [Rx] buPROPion XL [Wellbutrin XL] 300 mg PO DAILY #30 tab.er.24h 10/17/18 [Rx] Follow up Appointment(s)/Referral(s): Sina Russo MD [Primary Care Provider] - 1-2 days Activity/Diet/Wound Care/Special Instructions: Activity and diet as tolerated. No guns or weapons in the home. Refrain from alcohol and drugs that are not prescribed by your physician. Take all medications as prescribed by your physicians, and attend all follow up appointments as scheduled. If in need of medication refills, please go to your primary care physician, or your out patient psychiatric provider. If in crisis, please call , or go the nearest ER for an evaluation.
== END 2018-10-17 11:46 | disposition home or self-care (01) | DRG 885 ==
LOC: EC 19:05 → 3MHU 21:55
PROVIDERS: ADMIT Psychiatry & Neurology Psychiatry; ATTEND Psychiatry & Neurology Psychiatry
PROC: 3E0234Z Introduction of Serum, Toxoid and Vaccine into Muscle, Percutaneous Approach (ICD-10-PCS; principal; 2018-10-11)
DX: F33.2 Major depressive disorder, recurrent severe without psychotic features (principal); R45.851 Suicidal ideations; F17.210 Nicotine dependence, cigarettes, uncomplicated; F12.10 Cannabis abuse, uncomplicated; F41.9 Anxiety disorder, unspecified; F42.9 Obsessive-compulsive disorder, unspecified; F60.3 Borderline personality disorder; J45.909 Unspecified asthma, uncomplicated; K21.9 Gastro-esophageal reflux disease without esophagitis; M79.7 Fibromyalgia; S10.93XA Contusion of unspecified part of neck, initial encounter; S16.1XXA Strain of muscle, fascia and tendon at neck level, initial encounter; Z79.899 Other long term (current) drug therapy; Z87.730 Personal history of (corrected) cleft lip and palate; Z91.5 Personal history of self-harm; Z23 Encounter for immunization; M19.90 Unspecified osteoarthritis, unspecified site; Z83.2 Family history of diseases of the blood and blood-forming organs and certain disorders involving the immune mechanism; G43.909 Migraine, unspecified, not intractable, without status migrainosus
CPT/HCPCS: 80053; 80061; 80306; 82075; 83036; 84443; 85025; 90471; 90715; 99285

== ENCOUNTER → 2019-01-11 | Outpatient (CLI) | payer OTHER ==
[2019-01-12 01:43] LABS: Hepatitis A Antibody IgM Non-Reactive (Non-Reactive); Hepatitis B Core IgM Non-Reactive (Non-Reactive); Hepatitis B Surface Antigen Non-Reactive (Non-Reactive); Hepatitis C IgG Antibody Non-Reactive (Non-Reactive)
[2019-01-12 02:35] LABS: Hepatitis A Antibody IgM Non-Reactive (Non-Reactive); Hepatitis C IgG Antibody Non-Reactive (Non-Reactive)
[2019-01-12 02:36] LABS: HIV 1 AB Non-Reactive (Non-Reactive); HIV 2 AB Non-Reactive (Non-Reactive); HIV AB P24 Non-Reactive (Non-Reactive); HIV P24 AG Non-Reactive (Non-Reactive)
== END | disposition home or self-care (01) ==
LOC: LABWHC1 17:07
PROVIDERS: ATTEND Obstetrics & Gynecology
DX: Z11.3 Encounter for screening for infections with a predominantly sexual mode of transmission (principal)
CPT/HCPCS: 36415; 80074; 86704; 86709; 86780; 86803; 87390

== ENCOUNTER → 2019-03-30 | Outpatient (CLI) | payer OTHER ==
[2019-03-30 18:00] LABS: T4, Free (Free Thyroxine) 0.8 ng/dL (0.80-1.80)
== END | disposition home or self-care (01) ==
LOC: LABWHC1 13:57
PROVIDERS: ATTEND Psychiatry & Neurology Neurology
DX: G47.419 Narcolepsy without cataplexy (principal); G31.84 Mild cognitive impairment of uncertain or unknown etiology
CPT/HCPCS: 36415; 84439; 84443

== ENCOUNTER → 2019-06-08 | Outpatient (CLI) | payer OTHER ==
--- NOTE | 2019-06-08 18:34 | CONS ---
CONSULTATION DATE OF SERVICE: 06/08/2019 This patient is a 33-year-old lady who has been evaluated in the [facility] for significant excessive daytime sleepiness. HISTORY OF PRESENT ILLNESS/SLEEP-WAKE EVALUATION: The patient had a sleep study done in another institution about one year ago, and it did not show any significant abnormalities of respiration at that time. Presently her sleep schedule on working days is from 7 p.m. until 11 or 11:30 a.m. and on weekends from around 10 p.m. until 11:30 or noon. She does not have problems with falling asleep usually. No TV in the bedroom. She sleeps on the side position. She does not snore. She usually sleeps through the night without awakening, but she wakes up tired and feels significant sleepiness during the day. [place] Sleepiness Scale increased to 16. She has difficulties paying attention, worries about her sleep, has problems with memory, concentration, irritability, depression, anxiety. She takes one nap around 1 p.m. Usually she does not feel refreshed after the nap. She does not see vivid dreams during the nap. Sometimes she may start to see her dreams after closing her eyes. No history of sleep paralysis. No history of cataplexy. She has episodes of moaning during sleep. PAST MEDICAL HISTORY: Past medical history is positive for anxiety, depression, bipolar type I, ear infection, fibromyalgia. PAST SURGICAL HISTORY: Right eardrum repair. Patient still has an ear tube in the right ear. 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 MEDICATIONS: Klonopin, gabapentin, Topamax, Vitamin D3, Abilify, Singulair, Cymbalta, Vitamin B complex, Wellbutrin, budesonide, Zyrtec, modafinil, . SOCIAL HISTORY: Positive for smoking about half pack a day for about 4 years. Alcohol consumption: None. FAMILY HISTORY: Thyroid problems, mental illness, colon cancer, asthma, fibromyalgia. REVIEW OF SYSTEMS: Significant excessive daytime sleepiness. PHYSICAL EXAMINATION: GENERAL: During physical examination, pleasant lady without distress. VITAL SIGNS: Blood pressure 116/67, heart rate 83, respiratory rate 16, height 5 feet 4-3/4 inches, weight 132.2 pounds, body mass index 22.1, temperature 98.7, oxygen saturation on room air 100%. HEENT: PERRIRON, EOMI. Evaluation of oropharynx showed tongue protrudes midline. Moderately low position of soft palate. Some restriction of nasal breathing. NECK: Supple, no JVD. Thyroid is not palpable. Neck is 12-1/2 inches in circumference. LUNGS: Clear to percussion and to auscultation. Good air exchange. No wheezing or rhonchi. HEART: S1, S2 regular. No murmurs, gallops or rubs. ABDOMEN: Soft and nontender. Bowel sounds are present. No organomegaly appreciated. EXTREMITIES: No clubbing or cyanosis. SENIOR MEDICAL TRANSCRIPTIONIST: Awake, alert and oriented x3. Cranial nerves 2 to 7 intact. There is no fasciculation or atrophy. noted. No focal deficits observed. IMPRESSION: 1. Significant excessive daytime sleepiness. [place] Sleepiness Scale increased to 16. Possible positive history of hypnagogical hallucinations. Differential diagnoses include narcolepsy without cataplexy and idiopathic hypersomnia. 2. History of bipolar disorder type I. 3. Anxiety. 4. Depression. 5. Some restriction of nasal breathing. Differential diagnoses should include some abnormalities of respiration during sleep, but the patient sleeps through the night without awakening and sleep study about one year ago was negative for obstructive sleep apnea/hypopnea syndrome. 6. Status post cleft palate repair. 7. History of right ear infection, status post surgical treatment and ear tube insertion. PLAN: 1. Polysomnography will follow with multiple sleep latency test for objective evaluation of patient's symptoms of excessive daytime sleepiness. 2. CPAP/BiPAP titration if sleep study confirms obstructive sleep apnea-hypopnea syndrome. 3. Preferable position during sleep on the side. 4. No driving if patient feels any sleepiness. 5. I will see patient for follow-up visit to explain results of testing and following plan. Thank you very much for referring this patient for consultation. Sincerely, Deonte Ruth MD, PhD, FAASM Diplomat of [place] [employer] [place] [employer] Licensed Vocational Nurse of [facility] [place] MMODL / MARTINE: [id number] /
== END | disposition home or self-care (01) ==
LOC: SLEEP 14:34
PROVIDERS: ATTEND Internal Medicine
DX: G47.10 Hypersomnia, unspecified (principal); F41.8 Other specified anxiety disorders; R93.89 Abnormal findings on diagnostic imaging of other specified body structures; F31.9 Bipolar disorder, unspecified; F17.200 Nicotine dependence, unspecified, uncomplicated; Z96.22 Myringotomy tube(s) status; Z98.890 Other specified postprocedural states; Z86.69 Personal history of other diseases of the nervous system and sense organs; Z82.5 Family history of asthma and other chronic lower respiratory diseases; Z79.899 Other long term (current) drug therapy
CPT/HCPCS: 99211

== ENCOUNTER → 2019-06-13 | Outpatient (CLI) | payer OTHER | END | disposition home or self-care (01) | LOC: LABWHC1 11:48 | PROVIDERS: ATTEND Psychiatry & Neurology Neurology | DX: G31.84 Mild cognitive impairment of uncertain or unknown etiology (principal) | CPT/HCPCS: 36415; 82607 ==

== ENCOUNTER 2019-08-20 18:02 | Emergency (ER) | payer OTHER ==
[2019-08-20 18:08] VITALS: TEMP 98.6
--- NOTE | 2019-08-20 18:53 | ED ---
General Adult HPI - General Chief complaint: Urogenital Stated complaint: vaginal issues Time Seen by Provider: 08/20/19 18:09 Source: patient, RN notes reviewed Mode of arrival: ambulatory Limitations: no limitations - History of Present Illness Initial comments: 33-year-old female with a past medical history of asthma, GERD presents to the emergency department for a chief complaint of vaginal discharge. Patient has had vaginal discharge for about 5 days. States it is whitish yellow in nature. Does admit to some mild itching. Patient states she did have a new sexual partner last week and did not use protection. Patient denies any abdominal pain. Denies any fevers.Patient has no other complaints at this time including shortness of breath, chest pain, abdominal pain, nausea or vomiting, headache, or visual changes. - Related Data Home Medications Medication Instructions Recorded Confirmed Multivitamins, Thera [Multivitamin 1 tab PO DAILY 12/24/16 10/12/18 (formulary)] [place]-3 Fatty Acids/Fish Oil [Fish 1 cap PO DAILY 12/24/16 10/12/18 Oil 1,000 mg Softgel] Beclomethasone Dipropionate [Qvar 2 puff INHALATION RT-BID 06/03/17 10/12/18 80 mcg] Cholecalciferol [Vitamin D3 (25 1,000 unit PO DAILY 06/03/17 10/12/18 Mcg = 1000 Iu)] Montelukast [Singulair] 10 mg PO DAILY 06/03/17 10/12/18 Potassium Chloride [Klor-Con 10] 10 meq PO DAILY@1800 03/31/18 10/12/18 Previous Rx's Medication Instructions Recorded Escitalopram [Lexapro] 10 mg PO DAILY #30 tab 10/17/18 Gabapentin [Neurontin] 300 mg PO TID #45 cap 10/17/18 Topiramate [Topamax] 100 mg PO TID #45 tab 10/17/18 buPROPion XL [Wellbutrin XL] 300 mg PO DAILY #30 tab.er.24h 10/17/18 metroNIDAZOLE [Flagyl] 500 mg PO BID 7 Days #14 tab 08/20/19 Allergies Allergy/AdvReac Type Severity Reaction Status Date / Time lamotrigine [From Lamictal] Allergy Intermediate Rash/Hives Verified 08/20/19 18:08 Review of Systems ROS Statement: Those systems with pertinent positive or pertinent negative responses have been documented in the HPI. ROS Other: All systems not noted in ROS Statement are negative. Past Medical History Past Medical History: Asthma, GERD/Reflux, Osteoarthritis (OA) Additional Past Medical History / Comment(s): OCD,borderline personality disorder, migraines, BLOOD IN STOOL History of Any Multi-Drug Resistant Organisms: None Reported Past Surgical History: Ear Surgery Additional Past Surgical History / Comment(s): CLEFT PALATE REPAIR, Past Anesthesia/Blood Transfusion Reactions: No Reported Reaction Past Psychological History: Anxiety, Bipolar Smoking Status: Current every day smoker Past Alcohol Use History: None Reported Past Drug Use History: Marijuana - Past Family History Mother Family Medical History: Deep Vein Thrombosis (DVT) General Exam Limitations: no limitations General appearance: alert, in no apparent distress Head exam: Present: atraumatic, normocephalic, normal inspection Eye exam: Present: normal appearance, PERRL, EOMI. Absent: scleral icterus, conjunctival injection, periorbital swelling ENT exam: Present: normal exam, mucous membranes moist Neck exam: Present: normal inspection. Absent: tenderness, meningismus, lymphadenopathy Respiratory exam: Present: normal lung sounds bilaterally. Absent: respiratory distress, wheezes, rales, rhonchi, stridor Cardiovascular Exam: Present: regular rate, normal rhythm, normal heart sounds. Absent: systolic murmur, diastolic murmur, rubs, gallop, clicks GI/Abdominal exam: Present: soft, normal bowel sounds. Absent: distended, tenderness, guarding, rebound, rigid External exam: Present: normal external exam. Absent: erythema, swelling, lesions, lacerations, ecchymosis Speculum exam: Present: vaginal discharge (White vaginal discharge). Absent: normal speculum exam, erythema, cervical discharge, vaginal bleeding, foreign body, tissue, laceration By manual exam: Present: normal by manual exam. Absent: cervical motion tenderness, adnexal tenderness, adnexal mass, uterine enlargement, uterine tenderness Neurological exam: Present: alert Course Vital Signs 08/20/19 18:07 Temperature 98.6 F Pulse Rate 88 Respiratory 18 Rate Blood Pressure 123/82 O2 Sat by Pulse 99 Oximetry Medical Decision Making - Medical Decision Making Pelvic exam was performed. She did not have any pelvic tenderness. Negative chandelier sign. She did have vaginal discharge that was white in nature. I did not notice a foul order. Trichomonas negative. HCG negative. No evidence of urinary tract infection. Gonorrhea chlamydia pending. Patient prefers to be treated empirically for gonorrhea and chlamydia. Patient has had BV in the past and she believes this is similar. She does request treatment for BV. I did give her Flagyl and discussed that she cannot drink alcohol while taking this and she is aware. - Lab Data Lab Results 08/20/19 08/20/19 08/20/19 Range/Units 18:38 18:38 18:38 Urine Color Yellow Urine Appearance Clear (Clear) Urine pH 7.0 (5.0-8.0) Ur Specific [place] 1.014 (1.001-1.035) Urine Protein Negative (Negative) Urine Glucose (UA) Negative (Negative) Urine Ketones Negative (Negative) Urine Blood Negative (Negative) Urine Nitrite Negative (Negative) Urine Bilirubin Negative (Negative) Urine Urobilinogen <2.0 (<2.0) mg/dL Ur Leukocyte Esterase Negative (Negative) Urine HCG, Qual Not Detected (Not Detectd) Trichomonas Ag (Rapid) Negative (Negative) Disposition Clinical Impression: Vaginal discharge Disposition: HOME SELF-CARE Condition: Good Instructions (If sedation given, give patient instructions): Vaginal Discharge (ED) Additional Instructions: Please take Flagyl as directed. Do not drink alcohol while taking this medication. Please follow-up with your doctor in one to 2 days. Follow up on culture results in 2 days. Refrain from sexual activity until you have these results because if it is positive you would be contagious.. Return to the emergency department for any worsening symptoms. Prescriptions: metroNIDAZOLE [Flagyl] 500 mg PO BID 7 Days #14 tab Is patient prescribed a controlled substance at d/c from ED?: No Referrals: Donta Roberts MD [Primary Care Provider] - 1-2 days Time of Disposition: 19:29
[2019-08-20 19:00] LABS: Appearance,Urine Clear (Clear); Bilirubin,Urine Negative (Negative); Blood,Urine Negative (Negative); Color,Urine Yellow; Glucose,Urine (UA) Negative (Negative); Ketones,Urine Negative (Negative); Leukocyte Esterase,Urine Negative (Negative); Nitrite,Urine Negative (Negative); Protein,Urine Negative (Negative); Specific Gravity,Urine 1.014 (1.001-1.035); Urobilinogen,Urine <2.0 mg/dL (<2.0)
[2019-08-20] MEDS ORDERED: cefTRIAXone 250 MG VIAL IM STA (19:06)
[2019-08-20] MEDS ORDERED: AZITHROMYCIN 500 MG TAB PO STA (19:06)
[2019-08-20 19:50] VITALS: BP 117/76; PULSE 98; RESP 16
== END 2019-08-20 19:50 | disposition home or self-care (01) ==
LOC: EC 18:02
DX: N89.8 Other specified noninflammatory disorders of vagina (principal); Z32.02 Encounter for pregnancy test, result negative; J45.909 Unspecified asthma, uncomplicated; F17.200 Nicotine dependence, unspecified, uncomplicated; Z79.51 Long term (current) use of inhaled steroids; Z88.8 Allergy status to other drugs, medicaments and biological substances
CPT/HCPCS: 81003; 81025; 87808; 87491; 87591; 87070; 99283; 96372; J0696

== ENCOUNTER → 2019-12-01 | Outpatient (CLI) | payer OTHER ==
[2019-12-01 22:12] LABS: T4, Free (Free Thyroxine) 0.8 ng/dL (0.80-1.80)
== END | disposition home or self-care (01) ==
LOC: LABWHC1 11:33
PROVIDERS: ATTEND Psychiatry & Neurology Neurology
DX: G47.419 Narcolepsy without cataplexy (principal); Z79.899 Other long term (current) drug therapy; G43.009 Migraine without aura, not intractable, without status migrainosus; G31.84 Mild cognitive impairment of uncertain or unknown etiology
CPT/HCPCS: 82306; 84439; 84443

== ENCOUNTER 2024-09-11 20:24 | Emergency (ER) | payer OTHER ==
--- NOTE | 2024-09-11 21:13 | ED ---
Back Pain HPI - General Source: patient <Christin Romerotawny - Last Filed: 09/11/24 21:12> <Christin - Last Filed: 09/12/24 04:55> - General Chief Complaint: Back Pain/Injury Stated Complaint: R Side pain/Back Pain Time Seen by Provider: 09/11/24 20:43 - History of Present Illness Initial Comments: 39-year-old female presenting with chief complaint of right lower quadrant pain. Patient reports that the pain has been ongoing for 3 weeks. It is a sharp pain that wraps around to her back. When the pain initially started she was seen at [facility], states that she had no imaging done but was told that it likely was due to her ovary. She was seen by her CERTIFIED NURSE earlier today who performed an exam and patient reports she had not pain at that time. She advised her to come to the ER for further testing. Patient does report a remote history of PID few years ago. She denies any abnormal vaginal bleeding or discharge. She does report chills. No dysuria or hematuria. No urgency or frequency. No diarrhea or constipation. Some nausea no vomiting. (Rasheed Romero) - Related Data Home Medications Medication Instructions Recorded Confirmed Multivitamins, Thera [Multivitamin 1 tab PO DAILY 12/24/16 10/12/18 (formulary)] [place]-3 Fatty Acids/Fish Oil [Fish 1 cap PO DAILY 12/24/16 10/12/18 Oil 1,000 mg Softgel] Beclomethasone Dipropionate [Qvar 2 puff INHALATION RT-BID 06/03/17 10/12/18 80 mcg] Cholecalciferol [Vitamin D3 (25 1,000 unit PO DAILY 06/03/17 10/12/18 Mcg = 1000 Iu)] Montelukast [Singulair] 10 mg PO DAILY 06/03/17 10/12/18 Potassium Chloride [Klor-Con 10 ER] 10 meq PO DAILY@1800 03/31/18 10/12/18 Previous Rx's Medication Instructions Recorded Escitalopram [Lexapro] 10 mg PO DAILY #30 tab 10/17/18 Gabapentin [Neurontin] 300 mg PO TID #45 cap 10/17/18 Topiramate [Topamax] 100 mg PO TID #45 tab 10/17/18 buPROPion XL [Wellbutrin XL] 300 mg PO DAILY #30 tab.er.24h 10/17/18 metroNIDAZOLE [Flagyl] 500 mg PO BID 7 Days #14 tab 08/20/19 Allergies Allergy/AdvReac Type Severity Reaction Status Date / Time lamotrigine [From Lamictal] Allergy Intermediate Rash/Hives Verified 09/11/24 20:41 Review of Systems ROS Other: All systems not noted in ROS Statement are negative. <Rasheed Romero - Last Filed: 09/11/24 21:12> ROS Other: All systems not noted in ROS Statement are negative. <Christin Seals - Last Filed: 09/12/24 04:55> ROS Statement: Those systems with pertinent positive or pertinent negative responses have been documented in the HPI. Past Medical History Past Medical History: Asthma, GERD/Reflux, Osteoarthritis (OA) Additional Past Medical History / Comment(s): OCD,borderline personality disorder, migraines, BLOOD IN STOOL, fibro, PID History of Any Multi-Drug Resistant Organisms: None Reported Past Surgical History: Ear Surgery Additional Past Surgical History / Comment(s): CLEFT PALATE REPAIR, Past Anesthesia/Blood Transfusion Reactions: No Reported Reaction Past Psychological History: Anxiety, Bipolar Past Alcohol Use History: None Reported Past Drug Use History: Marijuana - Past Family History Mother Family Medical History: Deep Vein Thrombosis (DVT) <Rasheed Romero - Last Filed: 09/11/24 21:12> General Exam Limitations: no limitations General appearance: alert, in no apparent distress Head exam: Present: atraumatic, normocephalic, normal inspection Eye exam: Present: normal appearance, EOMI Neck exam: Present: normal inspection. Absent: meningismus Respiratory exam: Absent: respiratory distress Cardiovascular Exam: Present: regular rate GI/Abdominal exam: Present: soft, tenderness. Absent: distended, guarding, rebound, rigid Neurological exam: Present: alert, oriented X3 Psychiatric exam: Present: normal affect, normal mood Skin exam: Present: warm, dry, normal color <Rasheed Romero - Last Filed: 09/11/24 21:12> Course Vital Signs 09/11/24 09/12/24 09/12/24 20:36 03:00 04:00 Temperature 98.7 F 97.9 F 97.9 F Pulse Rate 84 68 75 Respiratory 18 14 14 Rate Blood Pressure 130/83 100/66 101/65 O2 Sat by Pulse 98 99 100 Oximetry Medical Decision Making - Lab Data Result diagrams: 09/11/24 20:54 09/11/24 20:54 <Prince Sealsen - Last Filed: 09/12/24 04:55> - Medical Decision Making Was patient admitted / discharged? Hospital course, mention meds given and route, prescriptions, significant lab abnormalities, going to OR and other pertinent info. @ -[hospital course] patient was presented to and signed out to myself by ROBIN Rizvi pending results of CT abdomen pelvis. She is a 39-year-old female presenting for intermittent right lower quadrant pain x 3 weeks. Was sent in by her OB today for abdominal imaging. Labs remarkable for mild lactic elevation of 2.1. Patient received IV fluids. She has declined pain control. CT Abdo pelvis was ultimately negative for acute process. I did personally review CT I see no evidence of appendicitis, obstruction or perforation. My assessment patient is resting comfortably. When I discussed patient's history and reason presenting today, she states "I think it is my ovary". For this reason, out of concern for intermittent torsion, discussed with pt obtaining US pelvis to ensure no ovarian pathology. Pt agreeable with POC. Undiagnosed new problem with uncertain prognosis? @ -[No] Drug Therapy requiring intensive monitoring for toxicity (Heparin, Nitro, Insulin, Cardizem)? @ -[No] Were any procedures done? @ -[No] Diagnosis/symptom? @ -[default] Acute, or Chronic, or Acute on Chronic? @ -[default] Uncomplicated (without systemic symptoms) or Complicated (systemic symptoms)? @ -[default] Side effects of treatment? @ -[No] Exacerbation, Progression, or Severe Exacerbation? @ -[No] Poses a threat to life or bodily function? How? (Chest pain, [place], NM, pneumonia, PE, COPD, DKA, ARF, appy, cholecystitis, CVA, Diverticulitis, Homicidal, Suicidal, threat to staff... and all critical care pts) @ -[No] (Christin Seals) - Lab Data Lab Results 09/11/24 09/11/24 09/11/24 Range/Units 20:54 20:54 20:54 WBC 5.73 (4.50-10.00) 10*3/uL RBC 3.96 L (4.10-5.20) 10*6/uL Hgb 12.5 (12.0-15.0) g/dL Hct 37.0 L (37.2-46.3) % MCV 93.4 (80.0-97.0) fL MCH 31.6 (27.0-32.0) pg MCHC 33.8 (32.0-37.0) g/dL Plt Count 299 (140-440) 10*3/uL MPV 9.5 (9.5-12.2) fL Immature Gran % (Auto) 0.2 % Neutrophils % 41.9 % Lymphocytes % 43.3 % Monocytes % 8.6 % Eosinophils % 5.1 % Basophils % 0.9 % Immature Gran # 0.01 (0.00-0.04) 10*3/uL Neutrophils # 2.41 (1.80-7.70) 10*3/uL Lymphocytes # 2.48 (0.90-5.00) 10*3/uL Monocytes # 0.49 (0.20-1.00) 10*3/uL Eosinophils # 0.29 (0.04-0.35) 10*3/uL Basophils # 0.05 (0.00-0.10) 10*3/uL Sodium (137-145) mmol/L Potassium (3.5-5.1) mmol/L Chloride (98-107) mmol/L Carbon Dioxide (22-30) mmol/L Anion Gap mmol/L BUN (7-17) mg/dL Creatinine (0.52-1.04) mg/dL Est GFR (CKD-EPI)AfAm (>60 ml/min/1.73 sqM) Est GFR (CKD-EPI)NonAf (>60 ml/min/1.73 sqM) Glucose (74-99) mg/dL Lactic Ac Sepsis Rflx Plasma Lactic Acid [place] (0.7-2.0) mmol/L Calcium (8.4-10.2) mg/dL Total Bilirubin (0.2-1.3) mg/dL AST (14-36) U/L ALT (4-34) U/L Alkaline Phosphatase (38-126) U/L Total Protein (6.3-8.2) g/dL Albumin (3.5-5.0) g/dL Lipase (23-300) U/L Urine Color Colorless Urine Appearance Clear (Clear) Urine pH 6.5 (5.0-8.0) Ur Specific [place] 1.004 (1.001-1.035) Urine Protein Negative (Negative) Urine Glucose (UA) Negative (Negative) Urine Ketones Negative (Negative) Urine Blood Negative (Negative) Urine Nitrite Negative (Negative) Urine Bilirubin Negative (Negative) Urine Urobilinogen <2.0 (<2.0) mg/dL Ur Leukocyte Esterase Moderate H (Negative) Urine RBC 1 (0-5) /hpf Urine WBC 5 (0-5) /hpf Ur Squamous Epith Cells 3 (0-4) /hpf Urine Bacteria Occasional H (None) /hpf Urine HCG, Qual Not Detected (Not Detectd) 09/11/24 09/11/24 09/11/24 Range/Units 20:54 20:54 22:11 WBC (4.50-10.00) 10*3/uL RBC (4.10-5.20) 10*6/uL Hgb (12.0-15.0) g/dL Hct (37.2-46.3) % MCV (80.0-97.0) fL MCH (27.0-32.0) pg MCHC (32.0-37.0) g/dL Plt Count (140-440) 10*3/uL MPV (9.5-12.2) fL Immature Gran % (Auto) % Neutrophils % % Lymphocytes % % Monocytes % % Eosinophils % % Basophils % % Immature Gran # (0.00-0.04) 10*3/uL Neutrophils # (1.80-7.70) 10*3/uL Lymphocytes # (0.90-5.00) 10*3/uL Monocytes # (0.20-1.00) 10*3/uL Eosinophils # (0.04-0.35) 10*3/uL Basophils # (0.00-0.10) 10*3/uL Sodium 136 L (137-145) mmol/L Potassium 3.4 L (3.5-5.1) mmol/L Chloride 106 (98-107) mmol/L Carbon Dioxide 18 L (22-30) mmol/L Anion Gap 12 mmol/L BUN 5 L (7-17) mg/dL Creatinine 0.73 (0.52-1.04) mg/dL Est GFR (CKD-EPI)AfAm >90 (>60 ml/min/1.73 sqM) Est GFR (CKD-EPI)NonAf >90 (>60 ml/min/1.73 sqM) Glucose 138 H (74-99) mg/dL Lactic Ac Sepsis Rflx Y Plasma Lactic Acid [place] 2.1 H* (0.7-2.0) mmol/L Calcium 9.0 (8.4-10.2) mg/dL Total Bilirubin 0.5 (0.2-1.3) mg/dL AST 22 (14-36) U/L ALT 13 (4-34) U/L Alkaline Phosphatase 61 (38-126) U/L Total Protein 6.6 (6.3-8.2) g/dL Albumin 4.0 (3.5-5.0) g/dL Lipase 73 (23-300) U/L Urine Color Urine Appearance (Clear) Urine pH (5.0-8.0) Ur Specific [place] (1.001-1.035) Urine Protein (Negative) Urine Glucose (UA) (Negative) Urine Ketones (Negative) Urine Blood (Negative) Urine Nitrite (Negative) Urine Bilirubin (Negative) Urine Urobilinogen (<2.0) mg/dL Ur Leukocyte Esterase (Negative) Urine RBC (0-5) /hpf Urine WBC (0-5) /hpf Ur Squamous Epith Cells (0-4) /hpf Urine Bacteria (None) /hpf Urine HCG, Qual (Not Detectd) 09/12/24 Range/Units 01:16 WBC (4.50-10.00) 10*3/uL RBC (4.10-5.20) 10*6/uL Hgb (12.0-15.0) g/dL Hct (37.2-46.3) % MCV (80.0-97.0) fL MCH (27.0-32.0) pg MCHC (32.0-37.0) g/dL Plt Count (140-440) 10*3/uL MPV (9.5-12.2) fL Immature Gran % (Auto) % Neutrophils % % Lymphocytes % % Monocytes % % Eosinophils % % Basophils % % Immature Gran # (0.00-0.04) 10*3/uL Neutrophils # (1.80-7.70) 10*3/uL Lymphocytes # (0.90-5.00) 10*3/uL Monocytes # (0.20-1.00) 10*3/uL Eosinophils # (0.04-0.35) 10*3/uL Basophils # (0.00-0.10) 10*3/uL Sodium (137-145) mmol/L Potassium (3.5-5.1) mmol/L Chloride (98-107) mmol/L Carbon Dioxide (22-30) mmol/L Anion Gap mmol/L BUN (7-17) mg/dL Creatinine (0.52-1.04) mg/dL Est GFR (CKD-EPI)AfAm (>60 ml/min/1.73 sqM) Est GFR (CKD-EPI)NonAf (>60 ml/min/1.73 sqM) Glucose (74-99) mg/dL Lactic Ac Sepsis Rflx Plasma Lactic Acid [place] 0.5 L (0.7-2.0) mmol/L Calcium (8.4-10.2) mg/dL Total Bilirubin (0.2-1.3) mg/dL AST (14-36) U/L ALT (4-34) U/L Alkaline Phosphatase (38-126) U/L Total Protein (6.3-8.2) g/dL Albumin (3.5-5.0) g/dL Lipase (23-300) U/L Urine Color Urine Appearance (Clear) Urine pH (5.0-8.0) Ur Specific [place] (1.001-1.035) Urine Protein (Negative) Urine Glucose (UA) (Negative) Urine Ketones (Negative) Urine Blood (Negative) Urine Nitrite (Negative) Urine Bilirubin (Negative) Urine Urobilinogen (<2.0) mg/dL Ur Leukocyte Esterase (Negative) Urine RBC (0-5) /hpf Urine WBC (0-5) /hpf Ur Squamous Epith Cells (0-4) /hpf Urine Bacteria (None) /hpf Urine HCG, Qual (Not Detectd) Disposition <Rasheed Romero - Last Filed: 09/11/24 21:12> Is patient prescribed a controlled substance at d/c from ED?: No <Christin Seals - Last Filed: 06/10/25 04:55> Clinical Impression: Right lower quadrant abdominal pain, Uterine fibroid Disposition: HOME SELF-CARE Condition: Good Instructions (If sedation given, give patient instructions): Abdominal Pain (ED) Additional Instructions: Every disease is a spectrum and a small chance still exists that a serious condition could develop, for this reason, please monitor yourself closely for new, changing or worsening symptoms, symptoms that persist or not begin to improve over the next 72 hours, fevers, vaginal discharge, change in quality of your symptoms, fever, inability to tolerate/keep down fluids or your medications, inability to follow up with outpatient providers as instructed and should you experience these symptoms or should you have any further concerns for your wellbeing please return to the ED or call 911 immediately. Please follow-up with your OB as scheduled regarding today's visit. Please call them within the next 24 to 48 hours to update them to findings from today's visit and for next steps PLEASE call your primary care physician as soon as possible to arrange / discuss plan for followup appointment. Appointment in the next 1-3 days is strongly encouraged if possible. PLEASE let us know here before you leave if there is anything further we can do to be of any assistance. Take care and feel Better! Referrals: None,Stated [Primary Care Provider] - 1-2 days
[2024-09-11] MEDS: SODIUM CHLORIDE 0.9% 1,000 ML IV ONE (21:19)
[2024-09-11 21:30] LABS: Basophils # (A) 0.05 10*3/uL (0.00-0.10); Basophils % (A) 0.9 %; Eosinophils # (A) 0.29 10*3/uL (0.04-0.35); Eosinophils % (A) 5.1 %; HGB 12.5 g/dL (12.0-15.0); Lymphocytes # (A) 2.48 10*3/uL (0.90-5.00); Lymphocytes % (A) 43.3 %; MCH 31.6 pg (27.0-32.0); MCHC 33.8 g/dL (32.0-37.0); MCV 93.4 fL (80.0-97.0); Mean Platelet Volume 9.5 fL (9.5-12.2); Monocytes # (A) 0.49 10*3/uL (0.20-1.00); Monocytes % (A) 8.6 %; Neutrophils # (A) 2.41 10*3/uL (1.80-7.70); Neutrophils % (A) 41.9 %; Platelet Count 299 10*3/uL (140-440); RBC 3.96 10*6/uL (4.10-5.20); RDW 12.1 % (11.5-14.5); WBC 5.73 10*3/uL (4.50-10.00)
[2024-09-11 21:36] LABS: Appearance,Urine Clear (Clear); Bacteria,Urine Occasional /hpf; Bilirubin,Urine Negative (Negative); Blood,Urine Negative (Negative); Color,Urine Colorless; Glucose,Urine (UA) Negative (Negative); Ketones,Urine Negative (Negative); Leukocyte Esterase,Urine Moderate (Negative); Nitrite,Urine Negative (Negative); PH, Urine 6.5 (5.0-8.0); Protein,Urine Negative (Negative); RBC,Urine 1 /hpf (0-5); Specific Gravity,Urine 1.004 (1.001-1.035); Squamous Epithelial Cell,Urine 3 /hpf (0-4); Urobilinogen,Urine <2.0 mg/dL (<2.0); WBC,Urine 5 /hpf (0-5)
[2024-09-11 21:40] LABS: ALT 13 U/L (4-34); AST 22 U/L (14-36); African American GFR (CKD) >90 (>60 ml/min/1.73 sqM); Alkaline Phosphatase 61 U/L (38-126); Anion Gap 12 mmol/L; Blood Urea Nitrogen 5 mg/dL (7-17); Carbon Dioxide 18 mmol/L (22-30); Chloride 106 mmol/L (98-107); Glucose 138 mg/dL (74-99); Lipase 73 U/L (23-300); Non-African American GFR(CKD) >90 (>60 ml/min/1.73 sqM); Potassium 3.4 mmol/L (3.5-5.1); Sodium 136 mmol/L (137-145); Total Bilirubin 0.5 mg/dL (0.2-1.3); Total Protein 6.6 g/dL (6.3-8.2)
--- NOTE | 2024-09-12 00:47 | CT ---
EXAM: CT Abdomen and Pelvis With Intravenous Contrast CLINICAL HISTORY: ITS.REASON CT Reason: abdominal pain TECHNIQUE: Axial computed tomography images of the abdomen and pelvis with intravenous contrast. CTDI is 15.3 mGy and DLP is 677.9 mGy-cm. This CT exam was performed using one or more of the following dose reduction techniques: automated exposure control, adjustment of the mA and/or kV according to patient size, and/or use of iterative reconstruction technique. COMPARISON: No relevant prior studies available. FINDINGS: Lung bases: Unremarkable. No mass. No consolidation. ABDOMEN: Liver: Unremarkable. No mass. Gallbladder and bile ducts: Unremarkable. No calcified stones. No ductal dilation. Pancreas: Unremarkable. No mass. No ductal dilation. Spleen: Unremarkable. No splenomegaly. Adrenals: Unremarkable. No mass. Kidneys and ureters: Unremarkable. No solid mass. No hydronephrosis. Stomach and bowel: Unremarkable. No obstruction. No mucosal thickening. PELVIS: Appendix: No findings to suggest acute appendicitis. Bladder: Unremarkable. No mass. Reproductive: Unremarkable as visualized. ABDOMEN and PELVIS: Intraperitoneal space: Unremarkable. No free air. No significant fluid collection. Bones/joints: No acute fracture. No dislocation. Soft tissues: Unremarkable. Vasculature: Unremarkable. No abdominal aortic aneurysm. Lymph nodes: Unremarkable. No enlarged lymph nodes. IMPRESSION: Normal abdomen and pelvis CT.
[2024-09-12] MEDS: SODIUM CHLORIDE 0.9% 1,000 ML IV ONE (00:48)
[2024-09-12] MEDS: POTASSIUM BICARBONATE/CIT AC 20 MEQ TABLET.EFF PO ONE (02:00)
--- NOTE | 2024-09-12 04:29 | US ---
EXAM: US Pelvis Transvaginal CLINICAL HISTORY: ITS.REASON US Reason: RLQ pain, intermittent, torsion? TECHNIQUE: Real-time transvaginal pelvic ultrasound with image documentation. Transvaginal imaging was used for better evaluation of the endometrium and adnexa. COMPARISON: 09/22/2018 FINDINGS: Uterus/cervix: 1.3 x 1.2 x 1.5 cm hypoechogenic structure within the right uterus. Normal endometrial stripe thickness. Right ovary: Unremarkable. No mass. Normal blood flow. Left ovary: Unremarkable. No mass. Normal blood flow. Free fluid: No free fluid. Bladder: Empty bladder which cannot be evaluated with this probe. IMPRESSION: 1.5 cm fibroid uterus
[2024-09-12 04:47] VITALS: TEMP 97.9
[2024-09-12 05:16] VITALS: BP 104/68; PULSE 69; RESP 16
[2024-09-12 12:23] LABS: C. trachomatis,PCR Negative (Negative)
[2024-09-12 12:28] LABS: N. gonorrhoeae,PCR Negative (Negative)
== END 2024-09-12 05:14 | disposition home or self-care (01) ==
LOC: EC 20:24
DX: R10.31 Right lower quadrant pain (principal); D25.9 Leiomyoma of uterus, unspecified; Z88.8 Allergy status to other drugs, medicaments and biological substances
CPT/HCPCS: 36415; 80053; 83605; 83690; 85025; 81001; 81025; 87491; 87591; 74177; 99284; 96360; 96361; Q9967; 76830; 93975